=== PATIENT | female | born 1940 | race Caucasian/White ===

== ENCOUNTER 2016-11-29 01:25 | Emergency (ER) | payer MEDICARE, OTHER ==
[2016-11-29] MEDS ORDERED: Lasix 40 MG/4 ML ONE (01:33)
[2016-11-29] MEDS ORDERED: PROVENTIL 2.5 MG/3 ML NEB IH ONE ×2 (01:35→02:01)
[2016-11-29] MEDS ORDERED: Nitrostat 0.4 MG Tablet SL PRN (01:38)
[2016-11-29] MEDS ORDERED: Lasix 40 MG/4 ML IV ONE (01:45)
--- NOTE | 2016-11-29 01:46 | ERPHSYRPT ---
- History of Present Illness Time Seen by Provider: 11/29/16 01:27 Source: patient Exam Limitations: no limitations Patient Subjective Stated Complaint: PER EMS CALLED FOR SHORTNESS OF BREATH. EMS STS PT INITIALLY SPEAKING IN FULL SENTENCES WITHOUT DIFFICULTY. UPON ARRIVAL PT YELLING "I CAN'T BREATHE" "I DON'T WANT TO ". Triage Nursing Assessment: PT ALERT, YELLING OUT SCREAMING AT STAFF AND EMS "I DON'T WANT TO ". PT FOLLOWING ALL COMMANDS. PT SKIN PALE, WARM, DIAPHORETIC. RESPS LABORED. WET COUGH NOTED. Physician History: PT HAS HAD SHORTNESS OF AIR FOR THE PAST 2 DAYS WORSE WITH [facility] PULLED INTO [facility] ER THIS AM. PT DENIES CHEST PAIN, FEVER, ABDOMINAL PAIN; ADMITS TO COUGH. Allergies/Adverse Reactions: hydrocodone [Hydrocodone] Allergy (Intermediate, Verified 11/29/16 02:39) Home Medications: Allopurinol 100 mg [Zyloprim 100 mg] 100 mg PO DAILY 05/11/13 [History] Cholecalciferol (Vitamin D3) [Vitamin D] 50,000 unit PO UD 05/11/13 [ History] Furosemide 20 mg [Lasix 20 mg] 20 mg PO DAILY 05/11/13 [History] Hydrocodone/Acetaminophen [Vicodin 5-300 mg Tablet] 1 - 2 tab PO Q4-6HPRN PRN [History] Krill Oil/[place]-3/Dha/Epa [[place]-3 Krill Oil Softgel] 1 each PO DAILY 05/11/13 [ History] Levothyroxine Sodium 88 Mcg [Synthroid 88 Mcg] 88 mcg PO DAILY 05/11/13 [ History] Omeprazole 20 MG [Prilosec 20 mg] 20 mg PO DAILY 05/11/13 [History] Simvastatin 20Mg [Zocor 20Mg] 20 mg PO HS 05/11/13 [History] Aspirin 325 mg PO QAM 10/21/14 [History] Losartan Potassium 25 mg PO QHS 10/21/14 [History] Metoprolol Succinate [Toprol Xl] 200 mg PO HS 10/21/14 [History] Hx Tetanus, Diphtheria Vaccination/Date Given: Yes Hx Influenza Vaccination/Date Given: Yes (2013) Hx Pneumococcal Vaccination/Date Given: No - Review of Systems Constitutional: No Fever Respiratory: Cough, Dyspnea Cardiac: No Chest Pain Abdominal/Gastrointestinal: Nausea, No Abdominal Pain, No Vomiting Neurological: No Headache Endocrine: No Excessive Sweating All Other Systems: Reviewed and Negative - Past Medical History Pertinent Past Medical History: Yes Cardiac History: High Cholesterol, Hypertension, Myocardial Infarction (ID) Respiratory History: CHF, Sleep Apnea Endocrine Medical History: Hypothyroidism Musculoskeletal History: No Pertinent History GI Medical History: No Pertinent History History: No Pertinent History Psycho-Social History: No Pertinent History Female Reproductive Disorders: No Pertinent History - Past Surgical History Past Surgical History: Yes Neuro Surgical History: No Pertinent History Cardiac: Cardiac Stent, Pacemaker Respiratory: No Pertinent History Gastrointestinal: Appendectomy Genitourinary: No Pertinent History Musculoskeletal: Joint Replacement Female Surgical History: Tubal Ligation - Social History Smoking Status: Unknown if ever smoked How long have you smoked: no Exposure to second hand smoke: No Alcohol Use: None Drug Use: none Patient Lives Alone: No Significant Family History: heart disease, hypertension - Female History Hx Now: No - Nursing Vital Signs Nursing Vital Signs: Initial Vital Signs Temperature 98.5 F Temperature Source Rectal Pulse Rate 83 Respiratory Rate 28 Blood Pressure 198/112 - Physical Exam General Appearance: lethargy (LETHARGIC BUT AROUSABLE AND WILL ANSWER QUESTIONS. ) Eye Exam: PERRL/EOMI Ears, Nose, Throat Exam: normal pharynx Neck Exam: normal inspection Respiratory Exam: crackles/rales, wheezing Cardiovascular/Chest Exam: normal heart sounds Abdominal/Gastrointestinal Exam: soft, normal bowel sounds Extremity Exam: pedal edema (+2 ANKLE EDEMA BILATERALLY) Peripheral Pulses Exam: dorsalis-pedis (R): 2+, dorsalis-pedis (L): 2+ Neurologic Exam: alert, cooperative Skin Exam: diaphoresis, pale SpO2 Interpretation: hypoxic SpO2: 63 Oxygen Delivery: Nasal Cannula - Course Nursing assessment & vital signs reviewed: Yes EKG Interpreted by Me: RATE (77), Other (PACED RHYTHM; INTRAVENTRICULAR BLOCK.) - Radiology Exams Chest X-ray Interpretation: Interpreted by me (PULMONARY EDEMA) Ordered Tests: Active Orders 24 hr Category Date Time Status Metal Bumper STAT Care 11/29/16 01:35 Active Catheter-[place] Mazariegos STAT Care 11/29/16 01:51 Active EKG-ER Only STAT Care 01/17/17 01:35 Active IV Insertion STAT Care 11/29/16 01:35 Active CHEST 1 VIEW (PORTABLE) Stat Exams 11/29/16 01:36 Taken AMYLASE Stat Lab 11/29/16 01:38 Completed ARTERIAL BLOOD GASES Urgent Lab 11/29/16 01:40 Completed ARTERIAL BLOOD GASES Urgent Lab 11/29/16 01:56 Ordered ARTERIAL BLOOD GASES Urgent Lab 11/29/16 02:30 Completed BLOOD CULTURE Stat Lab 11/29/16 01:55 Received CBC W DIFF Stat Lab 11/29/16 01:45 Completed CMP Stat Lab 11/29/16 01:45 Completed CULTURE,SPUTUM Stat Lab 11/29/16 01:36 Uncollected CULTURE,URINE Stat Lab 11/29/16 02:07 Ordered LIPASE Stat Lab 11/29/16 01:38 Completed Lactic Acid Urgent Lab 11/29/16 01:40 Completed Lactic Acid Urgent Lab 11/29/16 02:30 Completed MAGNESIUM Stat Lab 11/29/16 01:45 Completed Manual Differential NC Stat Lab 11/29/16 01:45 Completed NT PRO BNP Stat Lab 11/29/16 01:45 Completed PROTIME WITH INR Stat Lab 11/29/16 01:45 Completed PTT Stat Lab 11/29/16 01:45 Completed TROPONIN Stat Lab 11/29/16 01:45 Completed UA Stat Lab 11/29/16 01:51 Ordered Urine Triage Profile Stat Lab 11/29/16 01:51 Ordered BiPap/CPAP Assessment STAT RT 11/29/16 01:35 Active Respiratory Nebulizer STAT RT 11/29/16 01:37 Completed Medication Summary Generic Name Dose Route Start Last Admin Trade Name Freq PRN Reason Stop Dose Admin Nitroglycerin/Dextrose 250 mls @ 0.9 mls/hr 11/29/16 02:15 11/29/16 02:25 Ntg 0.2mg/Ml In D5w Glass IV 12/29/16 02:14 3 mls/hr .Q24H MARIANO Administration Protocol 3 MCG/MIN Azithromycin 250 mls @ 125 mls/hr 11/29/16 02:08 11/29/16 02:18 Zithromax 500 Mg/ 250 Ml Nacl Premix IV 11/29/16 04:07 125 mls/hr STAT ONE Administration Nitroglycerin 0.4 mg 11/29/16 01:38 11/29/16 02:12 Nitrostat 0.4 Mg Tablet SL 12/29/16 01:37 0.4 mg Q5MIN PRN MR X 3 PRN Administration CHEST PAIN Discontinued Medications Generic Name Dose Route Start Last Admin Trade Name Tyree PRN Reason Stop Dose Admin Albuterol Sulfate 2.5 mg 11/29/16 01:35 11/29/16 02:02 Proventil 2.5 Mg/3 Ml Neb IH 11/29/16 01:36 2.5 mg STAT ONE Administration Albuterol Sulfate Confirm 11/29/16 02:01 Proventil 2.5 Mg/3 Ml Neb Administered 11/29/16 02:02 Dose 2.5 mg IH .STK-MED ONE Furosemide Confirm 11/29/16 01:33 Lasix 40 Mg/4 Ml Administered 11/29/16 01:34 Dose 40 mg .ROUTE .STK-MED ONE Furosemide 40 mg 11/29/16 01:45 11/29/16 01:46 Lasix 40 Mg/4 Ml IV 11/29/16 01:46 40 mg STAT ONE Administration Ceftriaxone Sodium/Dextrose 50 mls @ 100 mls/hr 11/29/16 02:08 11/29/16 02:19 Rocephin 1 Gm-D5w 50 Ml Bag IV 11/29/16 02:37 100 mls/hr STAT ONE Administration Azithromycin Confirm 11/29/16 02:16 Zithromax 500 Mg/ 250 Ml Nacl Premix Administered 11/29/16 02:17 Dose 250 mls @ ud IV .STK-MED ONE Ceftriaxone Sodium/Dextrose Confirm 11/29/16 02:16 Rocephin 1 Gm-D5w 50 Ml Bag Administered 11/29/16 02:17 Dose 50 mls @ ud IV .STK-MED ONE Nitroglycerin/Dextrose Confirm 11/29/16 02:24 Ntg 0.2mg/Ml In D5w Glass Administered 11/29/16 02:25 Dose 250 mls @ ud IV .STK-MED ONE Sodium Chloride Confirm 11/29/16 02:30 Sodium Chloride 0.9% 1000 Ml Administered 11/29/16 02:31 Dose 1,000 mls @ ud .ROUTE .STK-MED ONE Lab/Rad Data: Laboratory Result Diagrams 11/29/16 01:45 01/17/17 01:45 Laboratory Results 11/29/16 11/29/16 11/29/16 Range/Units 02:30 01:45 01:45 WBC (4.0-10.5) K/mm3 RBC (4.1-5.4) M/mm3 Hgb (12.0-16.0) gm/dl Hct (35-47) % MCV (78-100) fl MCH (26-32) pg MCHC (32-36) g/dl RDW (11.5-14.0) % Plt Count (150-450) K/mm3 MPV (6-9.5) fl INR 0.90 (0.8-3.0) PTT 28.2 (25.3-37.0) SECONDS Puncture Site RIGHT BRACHIAL pCO2 58 H (35-45) mmHg pO2 498 H* (75-100) mmHg Base Excess -5.9 L (-2.0-2.0) O2 Saturation 97.8 (94-100) g/dF ABG pH 7.20 L* (7.35-7.45) ABG HCO3 22.7 (22-28) ABG O2 Sat (Measured) 99.2 (95-100) % Cecilio Test NOT APPLICABLE A-a Gradient 143 a/A Ratio 0.78 Hemoglobin 11.8 Carboxyhemoglobin 0.6 (0.0-6.9) % THgb Methemoglobin 0.7 L (1.4-1.5) % Potassium 4.3 5.1 (3.5-5.1) Temperature 37.0 C POC O2 Flow Rate 100 % Vent Mode BiPAP Inspiratory BiPAP 16 Expiratory BiPAP 6 Sodium 142 (136-145) mEq/L Chloride 104 (98-107) mEq/L Carbon Dioxide 22.0 (21-32) mEq/L Anion Gap 20.9 H (5-15) MEQ/L BUN 21 H (9-20) mg/dL Creatinine 1.72 H (0.55-1.30) mg/dl Estimated GFR 31 ML/MIN Glucose 314 H (70-110) MG/DL Lactic Acid 3.1 H (0.4-2.0) Calcium 9.0 (8.5-10.1) mg/dL Magnesium 2.2 (1.8-2.4) mg/dL Total Bilirubin 0.9 (0.2-1.0) mg/dL AST 17 (15-37) U/L ALT 14 (12-78) U/L Alkaline Phosphatase 134 H (46-116) U/L Troponin I 0.137 H* (0.000-0.056) ng/ml NT-Pro-B Natriuret Pep 4057 H (0-125) pg/ml Serum Total Protein 7.4 (6.4-8.2) gm/dL Albumin 3.7 (3.4-5.0) g/dL Amylase (25-115) U/L Lipase (73-393) U/L 11/29/16 11/29/16 11/29/16 Range/Units 01:45 01:40 01:40 WBC 19.0 H (4.0-10.5) K/mm3 RBC 4.18 (4.1-5.4) M/mm3 Hgb 12.7 (12.0-16.0) gm/dl Hct 41.6 (35-47) % MCV 99.5 (78-100) fl MCH 30.4 (26-32) pg MCHC 30.5 L (32-36) g/dl RDW 14.3 H (11.5-14.0) % Plt Count 356 (150-450) K/mm3 MPV 11.5 H (6-9.5) fl INR (0.8-3.0) PTT (25.3-37.0) SECONDS Puncture Site LEFT RADIAL pCO2 93 H* (35-45) mmHg pO2 67 L (75-100) mmHg Base Excess -14.4 L (-2.0-2.0) O2 Saturation 80.7 L (94-100) g/dF ABG pH 6.93 L* (7.35-7.45) ABG HCO3 19.5 L (22-28) ABG O2 Sat (Measured) 82.7 L (95-100) % Cecilio Test NOT APPLICABLE A-a Gradient 530 a/A Ratio 0.11 Hemoglobin 13.0 Carboxyhemoglobin 1.0 (0.0-6.9) % THgb Methemoglobin 1.4 (1.4-1.5) % Potassium 5.3 H (3.5-5.1) Temperature 37.0 C POC O2 Flow Rate 100 % Vent Mode Inspiratory BiPAP Expiratory BiPAP Sodium (136-145) mEq/L Chloride (98-107) mEq/L Carbon Dioxide (21-32) mEq/L Anion Gap (5-15) MEQ/L BUN (9-20) mg/dL Creatinine (0.55-1.30) mg/dl Estimated GFR ML/MIN Glucose (70-110) MG/DL Lactic Acid 7.5 H (0.4-2.0) Calcium (8.5-10.1) mg/dL Magnesium (1.8-2.4) mg/dL Total Bilirubin (0.2-1.0) mg/dL AST (15-37) U/L ALT (12-78) U/L Alkaline Phosphatase (46-116) U/L Troponin I (0.000-0.056) ng/ml NT-Pro-B Natriuret Pep (0-125) pg/ml Serum Total Protein (6.4-8.2) gm/dL Albumin (3.4-5.0) g/dL Amylase (25-115) U/L Lipase (73-393) U/L 11/29/16 Range/Units 01:38 WBC (4.0-10.5) K/mm3 RBC (4.1-5.4) M/mm3 Hgb (12.0-16.0) gm/dl Hct (35-47) % MCV (78-100) fl MCH (26-32) pg MCHC (32-36) g/dl RDW (11.5-14.0) % Plt Count (150-450) K/mm3 MPV (6-9.5) fl INR (0.8-3.0) PTT (25.3-37.0) SECONDS Puncture Site pCO2 (35-45) mmHg pO2 (75-100) mmHg Base Excess (-2.0-2.0) O2 Saturation (94-100) g/dF ABG pH (7.35-7.45) ABG HCO3 (22-28) ABG O2 Sat (Measured) (95-100) % Cecilio Test A-a Gradient a/A Ratio Hemoglobin Carboxyhemoglobin (0.0-6.9) % THgb Methemoglobin (1.4-1.5) % Potassium (3.5-5.1) Temperature C POC O2 Flow Rate % Vent Mode Inspiratory BiPAP Expiratory BiPAP Sodium (136-145) mEq/L Chloride (98-107) mEq/L Carbon Dioxide (21-32) mEq/L Anion Gap (5-15) MEQ/L BUN (9-20) mg/dL Creatinine (0.55-1.30) mg/dl Estimated GFR ML/MIN Glucose (70-110) MG/DL Lactic Acid (0.4-2.0) Calcium (8.5-10.1) mg/dL Magnesium (1.8-2.4) mg/dL Total Bilirubin (0.2-1.0) mg/dL AST (15-37) U/L ALT (12-78) U/L Alkaline Phosphatase (46-116) U/L Troponin I (0.000-0.056) ng/ml NT-Pro-B Natriuret Pep (0-125) pg/ml Serum Total Protein (6.4-8.2) gm/dL Albumin (3.4-5.0) g/dL Amylase 62 (25-115) U/L Lipase 225 (73-393) U/L - Progress Progress Note: 11/29/16 02:30 PT LOOKS PINK, ALERT, AUSCULTATION REVEALS LESS RALES. Discussed with Dr.: Other (SPOKE WITH DR SANDERS(COVERING FINANCE OFFICER FOR DR CACERES)([id number]) WHO ACCEPTED PT FOR TRANSFER TO [facility] A DIRECT ADMISSION.) - Departure Time of Disposition: 02:49 Departure Disposition: Transfer ([facility]) Clinical Impression: ACUTE PULMONARY EDEMA, ELEVATED TROPONIN I, HYPOTHYROIDISM, HTN Condition: Stable Critical Care Time: Yes Critical Care Time(excluding separately billable procedures): 30-74 minutes Referrals: YAN CACERES [Primary Care Provider] -
[2016-11-29 01:57] LABS: A-aADO2 530; ARTERIAL BLD GAS O2 SATURATION 82.7 % (95-100); ARTERIAL BLOOD GAS BASE EXCESS -14.4 (-2.0-2.0); ARTERIAL BLOOD GAS FIO2 100 %; ARTERIAL BLOOD GAS PO2 67 mmHg (75-100)
[2016-11-29 01:58] LABS: ARTERIAL BLOOD GAS pH 6.93 (7.35-7.45)
[2016-11-29 02:00] LABS: Mean Cell Volume 99.5 fl (78-100); Mean Corpuscular Hemoglobin 30.4 pg (26-32); Mean Platelet Volume 11.5 fl (6-9.5); Platelet Count 356 K/mm3 (150-450); Red Blood Count 4.18 M/mm3 (4.1-5.4); Red Cell Distribution Width 14.3 % (11.5-14.0)
[2016-11-29] MEDS ORDERED: Zithromax 500 MG/ 250 ML NaCl Premix 250 ML IV ONE ×2 (02:08→02:16)
[2016-11-29] MEDS ORDERED: ROCEPHIN 1 Gm-D5w 50 ml Bag** 50 ML IV ONE ×2 (02:08→02:16)
[2016-11-29] MEDS ORDERED: Ntg 0.2MG/Ml in D5W GLASS*** 250 ML IV SCH (02:15)
[2016-11-29 02:17] LABS: INR 0.9 (0.8-3.0); PROTIME 10.1 SECONDS (9.95-12.35)
[2016-11-29 02:20] LABS: PTT 28.2 SECONDS (25.3-37.0)
[2016-11-29] MEDS ORDERED: Ntg 0.2MG/Ml in D5W GLASS*** 250 ML IV ONE (02:24)
[2016-11-29 02:28] LABS: ALBUMIN 3.7 g/dL (3.4-5.0); ANION GAP 20.9 MEQ/L (5-15); BILIRUBIN,TOTAL 0.9 mg/dL (0.2-1.0); MAGNESIUM 2.2 mg/dL (1.8-2.4); Potassium 5.1 mEq/L (3.5-5.1); Total Protein 7.4 gm/dL (6.4-8.2)
[2016-11-29] MEDS ORDERED: Sodium Chloride 0.9% 1000 ML 1,000 ML ONE (02:30)
[2016-11-29 02:32] LABS: LIPASE 225 U/L (73-393)
[2016-11-29 02:32] LABS: TROPONIN 0.137 ng/ml (0.000-0.056)
[2016-11-29 02:38] LABS: A-aADO2 143; ARTERIAL BLD GAS O2 SATURATION 99.2 % (95-100); ARTERIAL BLOOD GAS BASE EXCESS -5.9 (-2.0-2.0); ARTERIAL BLOOD GAS FIO2 100 %; ARTERIAL BLOOD GAS PO2 498 mmHg (75-100); BIPAP(E) 6; BIPAP(I) 16; Lactic Acid 3.1 (0.4-2.0)
[2016-11-29 03:30] LABS: Eosinophil 2 % (0.00-3.0); Platelet Estimate NORMAL (NORMAL); Total Cells Counted 100
[2016-11-29 04:09] LABS: Bacteria RARE /HPF (NEGATIVE); COMPLETE URINE MICROSCOPIC? YES; Collection Type CATH; Epithelial Cells FEW /HPF (FEW); Ph 6.5 (5-6); WBC 0-2 /HPF (0-5)
[2016-11-29 07:32] LABS: A-aADO2 34; ARTERIAL BLD GAS O2 SATURATION 97.9 % (95-100); ARTERIAL BLOOD GAS FIO2 28 %; ARTERIAL BLOOD GAS PO2 112 mmHg (75-100); ARTERIAL BLOOD GAS pH 7.42 (7.35-7.45); Lactic Acid 1.3 (0.4-2.0)
[2016-11-29 07:33] LABS: ALLEN TEST OK? yes
[2016-11-29 08:38] LABS: Carbon Dioxide 26.6 mEq/L (21-32); Potassium 4.6 mEq/L (3.5-5.1)
[2016-11-29 09:02] LABS: TROPONIN 0.175 ng/ml (0.000-0.056)
[2016-11-29] MEDS ORDERED: ENOXAPARIN SODIUM SQ SCH (09:30)
--- NOTE | 2016-11-29 09:39 | XRAY ---
Indication: Short of breath. Comparison: October 20, 2014 Portable chest degraded by respiration artifact and now demonstrates right mid to lower lung infiltrate versus atelectasis without consolidation/large effusion. Left lung clear. Heart is not enlarged for AP portable technique with stable left-sided dual-lead pacemaker. Bony thorax intact again with mild osteopenia and degenerative changes. Impression: New right lung infiltrate/atelectasis. Correlate clinically.
[2016-11-29 10:17] VITALS: BP 137/73; PULSE 61; O2SAT 97
[2016-11-29] MEDS ORDERED: Nitrostat 0.4 MG (ED) SL ONE (15:28)
== END 2016-11-29 10:20 | disposition short-term general hospital (02) ==
LOC: ED 01:25
DX: R60.9 Edema, unspecified (principal); E03.9 Hypothyroidism, unspecified; R79.89 Other specified abnormal findings of blood chemistry; I10 Essential (primary) hypertension; R06.02 Shortness of breath; R05 Cough; Z79.899 Other long term (current) drug therapy; I25.2 Old myocardial infarction; I50.9 Heart failure, unspecified
CPT/HCPCS: 36000; 36415; 36600; 51702; 71010; 80048; 80053; 80307; 81000; 82150; 82375; 82803; 83605; 83690; 83735; 83880; 84484; 85025; 85610; 85730; 87040; 87086; 93005; 93041; 94002; 94640; 96360; 96361; 96365; 96366; 96367; 99285; J0456; J0696; J1940

== ENCOUNTER 2017-08-31 08:41 | Emergency (ER) | payer MEDICARE, OTHER ==
--- NOTE | 2017-08-31 08:59 | ERPHSYRPT ---
- History of Present Illness Time Seen by Provider: 08/31/17 08:43 Source: patient, family (), old records Exam Limitations: no limitations Patient Subjective Stated Complaint: pt here for palpatations for 3 days off and on, she states she started a excerise program this week, she states she can hear her heart beating, no pain, dizziness and lightheaded Triage Nursing Assessment: pt alert, resp easy, skin w/d,pale, abd soft, edema to ankles.pt states swelling is normal for her,chest clear, Physician History: patient presents with a history of palpitations 3 days which started after beginning a wellness program of exercise; intermittent in nature; worse at night ; can hear her heart beat in her ears; no chest pain, no shortness of breath, some heaviness, no nausea, vomiting or diaphoresis, no visual disturbance,; dizziness which is lightheadedness without vertigo; no recent change in medications for 3 months; no recent trauma or exposure; no fever or chills; no headache; no tinnitus; patient has a hx of anemia; last blood transfusion was 50 years ago when had twins; has black stools when takes Iron; o Iron now but stools turned black one week ago; no gross blood ; Timing/Duration: day(s) (3), intermittent Activities at Onset: rest (after exercise) Quality: other (heaviness) Location: substernal Chest Pain Radiation: no radiation Severity of Pain-Max: mild Severity of Pain-Current: none Modifying Factors: Improves With: lying down (after exercise) Nitro Today/Relief: no nitro taken today Aspirin Treatment Today: 81 mg x 1 Associated Symptoms: other (lightheadedness and heaviness associated with palpitations) Prior Chest Pain/Cardiac Workup: cardiac cath, recently seen/treated Allergies/Adverse Reactions: hydrocodone [Hydrocodone] Allergy (Intermediate, Verified 08/31/17 08:53) Home Medications: Levothyroxine Sodium 88 Mcg [Synthroid 88 Mcg] 88 mcg PO DAILY 05/11/13 [ History] Omeprazole 20 MG [Prilosec 20 mg] 20 mg PO DAILY 05/11/13 [History] Aspirin 1 tab PO DAILY 11/29/16 [History] Atorvastatin Calcium 80 mg PO DAILY 11/29/16 [History] Cyanocobalamin (Vitamin B-12) [B-12] 1,000 mcg PO DAILY 11/29/16 [History] Metformin HCl 500 mg PO BID 11/29/16 [History] Paroxetine HCl 10 mg PO DAILY 11/29/16 [History] Albuterol Sulfate [Ventolin Hfa] 18 gm DAILY 08/31/17 [History] Carvedilol [Coreg] 25 mg BID 08/31/17 [History] Cyanocobalamin (Vitamin B-12) [B-12] 1,000 mcg DAILY 08/31/17 [History] Dabigatran Etexilate Mesylate [Pradaxa] 150 mg BID 08/31/17 [History] Krill/Om-3/Dha/Epa/Phospho/Ast [Krill Oil 500 mg Softgel] 1 ea DAILY 08/31/17 [ History] Magnesium 250 mg DAILY 08/31/17 [History] Sacubitril/Valsartan [Entresto 49 mg-51 mg Tablet] 1 ea BID 08/31/17 [History] Spironolactone 25 mg [Aldactone 25 MG] 25 mg DAILY 08/31/17 [History] Ubidecarenone/Vit E Acet [Co Q-10 100 mg Softgel] 1 ea DAILY 08/31/17 [History] Hx Tetanus, Diphtheria Vaccination/Date Given: Yes Hx Influenza Vaccination/Date Given: No Hx Pneumococcal Vaccination/Date Given: Yes Immunizations Up to Date: No - Review of Systems Constitutional: Other (lightheaded) Eyes: No Symptoms Ears, Nose, & Throat: No Symptoms Respiratory: No Cough, No Dyspnea, No Wheezing Cardiac: Edema (chronic), Palpitations (intermittent), No Chest Pain, No Syncope , No Orthopnea Abdominal/Gastrointestinal: No Abdominal Pain, No Nausea, No Vomiting, No Diarrhea, No Constipation Genitourinary Symptoms: No Symptoms Musculoskeletal: Arthralgias, No Fall, No Injury Skin: No Symptoms Neurological: Dizziness (lightheaded), No Focal Weakness, No Headache, No Seizure, No Vertigo Psychological: Anxiety, No Alcohol Abuse, No Drug Abuse, No Suicidal Ideations Endocrine: No Symptoms Hematologic/Lymphatic: Anemia, Easy Bruising, Other (black stools x 1 week), No Blood Clots, No Easy Bleeding Immunological/Allergic: No Symptoms - Past Medical History Pertinent Past Medical History: Yes Cardiac History: High Cholesterol, Hypertension, Myocardial Infarction ([place]) Respiratory History: CHF, Sleep Apnea Endocrine Medical History: Diabetes Type II, Hypothyroidism Musculoskeletal History: No Pertinent History GI Medical History: No Pertinent History History: No Pertinent History Psycho-Social History: No Pertinent History Female Reproductive Disorders: No Pertinent History - Past Surgical History Past Surgical History: Yes Neuro Surgical History: No Pertinent History Cardiac: Cardiac Stent, Pacemaker Respiratory: No Pertinent History Gastrointestinal: Appendectomy Genitourinary: No Pertinent History Musculoskeletal: Joint Replacement Female Surgical History: Tubal Ligation Other Surgical History: knee replacement - Social History Smoking Status: Never smoker How long have you smoked: no Exposure to second hand smoke: No Alcohol Use: None Drug Use: none Patient Lives Alone: No Significant Family History: heart disease, hypertension - Female History Hx Last Menstrual Period: post Hx Now: No - Nursing Vital Signs Nursing Vital Signs: Initial Vital Signs Temperature 97.8 F 08/31/17 08:41 Pulse Rate 84 08/31/17 08:41 Respiratory Rate 16 08/31/17 08:41 Blood Pressure 101/38 08/31/17 08:41 O2 Sat by Pulse Oximetry 98 08/31/17 08:41 Pain Scale Pain Intensity 0 - Physical Exam General Appearance: mild distress, alert, anxiety, obese Eye Exam: PERRL/EOMI, eyes nml inspection, other (fundi benign; no papilledema) Ears, Nose, Throat Exam: normal ENT inspection, TMs normal, pharynx normal, moist mucous membranes Neck Exam: normal inspection, non-tender, supple, full range of motion, JVD ( minimal), No meningismus, No carotid bruit Respiratory Exam: normal breath sounds, lungs clear, airway intact, No chest tenderness, No respiratory distress, No crackles/rales, No rhonchi, No wheezing Cardiovascular Exam: regular rate/rhythm, normal heart sounds, normal peripheral pulses, capillary refill 2-3 sec, No murmur Gastrointestinal/Abdomen Exam: soft, normal bowel sounds, No tenderness, No distention, No guarding, No rebound, No organomegaly Pelvic Exam: deferred Rectal Exam: normal exam, normal rectal tone, black stool, blood (heme pos), No mass, No hemorrhoids Back Exam: normal inspection, normal range of motion, No CVA tenderness, No vertebral tenderness, No rash Extremity Exam: normal inspection, normal range of motion, pedal edema (1+), No alina's sign Neurologic Exam: alert, oriented x 3, cooperative, 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 tested, normal mood/affect, nml cerebellar function, nml station & gait (with a cane), sensation nml Skin Exam: warm, dry, pale, No normal color (pale), No rash, No petechiae, No cyanosis SpO2 Interpretation: normal SpO2: 98 Oxygen Delivery: Room Air - Course Nursing assessment & vital signs reviewed: Yes EKG Interpreted by Me: RATE (76), Sinus Rhythm (Pacemaker rhythm), Other (paced rhythm unchanged when compared to EKG from November 29, 2016) Rhythm Strip: Rate (76 pacemaker), Normal Sinus Rhythm (pacemaker) - Radiology Exams Chest X-ray Interpretation: Reviewed by me, Teleradiologist Report, Negative, No Pneumonia, No Pneumothorax, Nml Heart Size, No Infiltrates, Nml Mediastinum, Other (pacemaker; apical calc granuloma) Ordered Tests: Active Orders 24 hr Category Date Time Status Accucheck STAT Care 08/31/17 10:25 Active Singe Machine Operator STAT Care 08/31/17 08:52 Active EKG-ER Only STAT Care 08/31/17 08:51 Active Orthostatic Vital Signs STAT Care 08/31/17 09:22 Active Oxygen-ED Only NASAL CANNULA 2 lpm Care 08/31/17 10:25 Active Pulse Oximetry (ED) STAT Care 08/31/17 08:51 Active Re-Check Vital Signs STAT Care 08/31/17 08:51 Active CHEST 1 VIEW (PORTABLE) Stat Exams 08/31/17 08:52 Completed CBC W DIFF Stat Lab 08/31/17 09:03 Completed CMP Stat Lab 08/31/17 09:03 Completed D-DIMER QUANTITATION Stat Lab 08/31/17 09:03 Completed MAGNESIUM Stat Lab 08/31/17 09:03 Completed Manual Differential NC Stat Lab 08/31/17 09:03 Completed NT PRO BNP Stat Lab 08/31/17 09:03 Completed Occult Blood,Stool Other Stat Lab 08/31/17 09:20 Completed PROTIME WITH INR Stat Lab 08/31/17 09:03 Completed Pathologist Review Stat Lab 08/31/17 09:03 Completed TROPONIN Q3H Lab 08/31/17 09:03 Completed Medication Summary Generic Name Dose Route Start Last Admin Trade Name Freq PRN Reason Stop Dose Admin Sodium Chloride 1,000 mls @ 50 mls/hr 08/31/17 09:00 08/31/17 09:13 Sodium Chloride 0.9% 1000 Ml IV 09/30/17 08:59 50 mls/hr .Q20H MARIANO Administration Lab/Rad Data: Laboratory Result Diagrams 08/31/17 09:03 08/31/17 09:03 Laboratory Results 08/31/17 08/31/17 08/31/17 Range/Units 09:20 09:20 09:03 WBC (4.0-10.5) K/mm3 RBC (4.1-5.4) M/mm3 Hgb (12.0-16.0) gm/dl Hct (35-47) % MCV (78-100) fl MCH (26-32) pg MCHC (32-36) g/dl RDW (11.5-14.0) % Plt Count (150-450) K/mm3 MPV (6-9.5) fl Gran % (36.0-66.0) % Lymphocytes % (24.0-44.0) % Monocytes % (0.0-12.0) % Eosinophils % (0.00-5.0) % Basophils % (0.0-0.4) % Segmented Neutrophils (36.0-66.0) % Lymphocytes (Manual) (24-44) % Monocytes (Manual) (0.0-12.0) % Eosinophils (Manual) (0.00-3.0) % Basophils # (0-0.4) Differential Comment Platelet Estimate (NORMAL) Polychromasia Poikilocytosis Anisocytosis Rouleaux Smear Path Review INR (0.8-3.0) D-Dimer (0-500) ng/mL Sodium (136-145) mEq/L Potassium (3.5-5.1) mEq/L Chloride (98-107) mEq/L Carbon Dioxide (21-32) mEq/L Anion Gap (5-15) MEQ/L BUN (9-20) mg/dL Creatinine (0.55-1.30) mg/dl Estimated GFR ML/MIN Glucose (70-110) MG/DL Calcium (8.5-10.1) mg/dL Magnesium (1.8-2.4) mg/dL Total Bilirubin (0.2-1.0) mg/dL AST (15-37) U/L ALT (12-78) U/L Alkaline Phosphatase (46-116) U/L Troponin I 0.055 (0.000-0.056) ng/ml NT-Pro-B Natriuret Pep (0-125) pg/ml Serum Total Protein (6.4-8.2) gm/dL Albumin (3.4-5.0) g/dL Stool Occult Blood POSITIVE (Negative) ABO Group O Rh Factor NEGATIVE Antibody Screen NEGATIVE (NEGATIVE) 08/31/17 08/31/17 08/31/17 Range/Units 09:03 09:03 09:03 WBC 6.4 (4.0-10.5) K/mm3 RBC 1.73 L* (4.1-5.4) M/mm3 Hgb 5.1 L* (12.0-16.0) gm/dl Hct 16.4 L (35-47) % MCV 94.8 (78-100) fl MCH 29.4 (26-32) pg MCHC 31.1 L (32-36) g/dl RDW 14.8 H (11.5-14.0) % Plt Count 242 (150-450) K/mm3 MPV 10.2 H (6-9.5) fl Gran % 62.1 (36.0-66.0) % Lymphocytes % 27.6 (24.0-44.0) % Monocytes % 7.6 (0.0-12.0) % Eosinophils % 1.9 (0.00-5.0) % Basophils % 0.8 (0.0-0.4) % Segmented Neutrophils 64 (36.0-66.0) % Lymphocytes (Manual) 28 (24-44) % Monocytes (Manual) 6 (0.0-12.0) % Eosinophils (Manual) 2 (0.00-3.0) % Basophils # 0.05 (0-0.4) Differential Comment ABNORMAL Platelet Estimate NORMAL (NORMAL) Polychromasia 1+ Poikilocytosis 1+ Anisocytosis 1+ Rouleaux 1+ Smear Path Review INR 4.58 H (0.8-3.0) D-Dimer 261 (0-500) ng/mL Sodium 139 (136-145) mEq/L Potassium 5.2 H (3.5-5.1) mEq/L Chloride 108 H (98-107) mEq/L Carbon Dioxide 19.1 L (21-32) mEq/L Anion Gap 16.9 H (5-15) MEQ/L BUN 66 H (9-20) mg/dL Creatinine 1.54 H (0.55-1.30) mg/dl Estimated GFR 35 ML/MIN Glucose 149 H (70-110) MG/DL Calcium 8.7 (8.5-10.1) mg/dL Magnesium 1.9 (1.8-2.4) mg/dL Total Bilirubin 0.50 (0.2-1.0) mg/dL AST 12 L (15-37) U/L ALT 10 L (12-78) U/L Alkaline Phosphatase 51 (46-116) U/L Troponin I (0.000-0.056) ng/ml NT-Pro-B Natriuret Pep 250 H (0-125) pg/ml Serum Total Protein 5.8 L (6.4-8.2) gm/dL Albumin 3.2 L (3.4-5.0) g/dL Stool Occult Blood (Negative) ABO Group Rh Factor Antibody Screen (NEGATIVE) reviewed - Progress Progress: re-examined Air Movement: good Progress Note: 08/31/17 09:01 at the bedside; old EKG reviewed; orthostatics and Accu-Chek pend EKG paced and unchanged; chest x-ray and labs pending; we'll monitor and recheck 08/31/17 09:10 Patient tolerated OSVS well; no change in VS ; no symptoms; accucheck 167; lab and xr pending; will continue to monitor and recheck 08/31/17 09:15 will get hemeoccult and T&S 08/31/17 09:24 rectal exam normal except stool black and suspect will be heme positive; lab pending; CXR pacemaker; apical calc granuloma; nad 08/31/17 09:33 Hb?Hct = 5.1/16.4; wbc = 6.4 rbc = 1.73 plt 242; PT = 51.7; INR = 4.58 and D Dimer = 261; will T&S and discuss transfusion and disposition 08/31/17 09:39 Discussed findings with the patient and family; discussed risks and benefits of transfusions and she concurred with a transfusion; she preferred to be admitted to [facility] if need; will consult the [facility] Hospitalists for transfer, admission and transfusion. 08/31/17 09:50 Troponin - 0.055 Dr Bose, Hospitalist at [facility] consulted and accepted the patient for transfer at 0950; patient and family notified 08/31/17 10:20 [facility] gave us a bed at 1015 - room 4127; EMS notified for transfer; patient notified; papers completed 08/31/17 10:26 patient and family informed of transfer and bed; Blood not T&C and given here as would not be ready in time and patient stable and not in dire distress; patient had been placed on O2 because of acute blood loss anemia; awaiting EMS arrival for transfer 08/31/17 10:50 EMS here to transport to [facility]; no change in status Blood Culture(s) Obtained: No Antibiotics given: No Discussed with .: Other (Juice, Hospitalist at [facility] accepted for transfer) Will see patient in: other Counseled pt/family regarding: lab results, diagnosis, need for follow-up, rad results - Departure Time of Disposition: 10:50 Departure Disposition: Transfer (to [facility] , DR Bose, Hospitalist accepting physician) Clinical Impression: Acute GI bleeding, Acute blood loss anemia, Renal failure, Elevated INR, Palpitations, Shortness of breath Condition: Serious Critical Care Time: Yes Critical Care Time(excluding separately billable procedures): 30-74 minutes Referrals: JOE GONZALEZ [CONSULTING PHYSICIAN] -
[2017-08-31] MEDS ORDERED: Sodium Chloride 0.9% 1000 ML 1,000 ML IV SCH (09:00)
[2017-08-31 09:05] LABS: BASOPHIL % 0.8 % (0.0-0.4); Eosinophil % 1.9 % (0.00-5.0); Granulocytes % 62.1 % (36.0-66.0); Lymphocytes % 27.6 % (24.0-44.0); Mean Cell Volume 94.8 fl (78-100); Mean Platelet Volume 10.2 fl (6-9.5); Monocytes % 7.6 % (0.0-12.0); Platelet Count 242 K/mm3 (150-450); Red Cell Distribution Width 14.8 % (11.5-14.0); White Blood Count 6.4 K/mm3 (4.0-10.5)
[2017-08-31] MEDS ORDERED: Sodium Chloride 0.9% 1000 ML 1,000 ML ONE (09:12)
--- NOTE | 2017-08-31 09:21 | XRAY ---
Indication: Short of breath. Comparison: November 29, 2016. Portable chest clear with incidental right apical calcified granuloma. Heart and mediastinal structures within normal limits. Stable left-sided dual-lead pacemaker. Bony thorax intact again with osteopenia and degenerative changes. Impression: Nonacute chest.
[2017-08-31 09:23] LABS: INR 4.58 (0.8-3.0); PROTIME 51.7 SECONDS (9.95-12.35)
[2017-08-31 09:29] LABS: Mean Corpuscular Hemoglobin 29.4 pg (26-32); Red Blood Count 1.73 M/mm3 (4.1-5.4)
[2017-08-31 09:40] LABS: ALBUMIN 3.2 g/dL (3.4-5.0); ANION GAP 16.9 MEQ/L (5-15); BILIRUBIN,TOTAL 0.5 mg/dL (0.2-1.0); Carbon Dioxide 19.1 mEq/L (21-32); MAGNESIUM 1.9 mg/dL (1.8-2.4); Potassium 5.2 mEq/L (3.5-5.1); Total Protein 5.8 gm/dL (6.4-8.2)
[2017-08-31 10:08] LABS: Eosinophil 2 % (0.00-3.0); Total Cells Counted 100
[2017-08-31 10:10] LABS: ANISOCYTOSIS 1+; Platelet Estimate NORMAL (NORMAL); Poikilocytosis 1+; Polychromasia 1+
[2017-08-31 10:42] VITALS: BP 94/55; PULSE 76
[2017-08-31 10:51] VITALS: O2SAT 98
== END 2017-08-31 10:56 | disposition short-term general hospital (02) ==
LOC: ED 08:41
DX: K92.2 Gastrointestinal hemorrhage, unspecified (principal); D62 Acute posthemorrhagic anemia; N19 Unspecified kidney failure; R79.1 Abnormal coagulation profile; R00.2 Palpitations; R06.02 Shortness of breath; Z79.899 Other long term (current) drug therapy
CPT/HCPCS: 36000; 36415; 71010; 80053; 82272; 82962; 83735; 83880; 84484; 85025; 85379; 85610; 86850; 86900; 86901; 93005; 93041; 96360; 96361; 99284; 99285

== ENCOUNTER 2019-09-28 01:34 | Emergency (ER) | payer MEDICARE, OTHER ==
--- NOTE | 2019-09-28 02:02 | ERPHSYRPT ---
- History of Present Illness Time Seen by Provider: 09/28/19 01:48 Source: patient, family Exam Limitations: no limitations Patient Subjective Stated Complaint: pt states she has a headache on the lt side of her head. states it goes down her neck and into her lt upper back. started 3 days ago and much worse tonight Triage Nursing Assessment: pt alert and oriented, answers questions approp. pt ambulatory with steady gait noted. respirations onlabored with lungs cta. pupils equal and reactive. Physician History: 78 y/o diabetic white female with hypothyroidism presents with worsening headache over 3 days. pain described as aching and throbbing. it travels caudally left post neck and left post shoulder. denies head trauma. last migraine headache was decades ago. denies new medication Timing/Duration: day(s) (3) Quality: aching, throbbing Head Pain Location: parietal (left) Severity of Pain-Max: moderate Severity of Pain-Current: moderate Recent Head Trauma: no recent headache/trauma Modifying Factors: Worsens With: exposure to light, noise Associated Symptoms: neck pain (left side), No confusion, No fever/chills, No nausea/vomiting, No sensitive to light Previous symptoms: no prior history Allergies/Adverse Reactions: hydrocodone [Hydrocodone] Allergy (Intermediate, Verified 09/28/19 02:42) tuberculin,PPD,multi-puncture Allergy (Intermediate, Verified 09/28/19 02:42) Swelling Home Medications: Levothyroxine Sodium 88 Mcg [Synthroid 88 Mcg] 88 mcg PO DAILY 05/11/13 [ History] Omeprazole 20 MG [Prilosec 20 mg] 20 mg PO DAILY 05/11/13 [History] Atorvastatin Calcium 80 mg PO DAILY 11/29/16 [History] Metformin HCl 500 mg PO BID 11/29/16 [History] Paroxetine HCl 10 mg PO DAILY 11/29/16 [History] Albuterol Sulfate [Ventolin Hfa] 18 gm DAILY 08/31/17 [History] Carvedilol [Coreg] 25 mg BID 08/31/17 [History] Cyanocobalamin (Vitamin B-12) [B-12] 1,000 mcg DAILY 08/31/17 [History] Krill/Om-3/Dha/Epa/Phospho/Ast [Krill Oil 500 mg Softgel] 1 ea DAILY 08/31/17 [ History] Magnesium 250 mg DAILY 08/31/17 [History] Sacubitril/Valsartan [Entresto 49 mg-51 mg Tablet] 1 ea BID 08/31/17 [History] Spironolactone 25 mg [Aldactone 25 MG] 25 mg DAILY 08/31/17 [History] Ubidecarenone/Vit E Acet [Co Q-10 100 mg Softgel] 1 ea DAILY 08/31/17 [History] Apixaban [Eliquis] 5 mg PO BID 10/09/17 [History] Hx Tetanus, Diphtheria Vaccination/Date Given: Yes Hx Influenza Vaccination/Date Given: No Hx Pneumococcal Vaccination/Date Given: Yes Immunizations Up to Date: Yes - Review of Systems Constitutional: No Symptoms Eyes: No Symptoms Ears, Nose, & Throat: No Symptoms Respiratory: No Symptoms Cardiac: No Symptoms Abdominal/Gastrointestinal: No Symptoms Genitourinary Symptoms: No Symptoms Musculoskeletal: Neck Pain Skin: No Symptoms Neurological: Headache Psychological: No Symptoms Endocrine: No Symptoms Hematologic/Lymphatic: No Symptoms Immunological/Allergic: No Symptoms All Other Systems: Reviewed and Negative - Past Medical History Pertinent Past Medical History: Yes Neurological History: Migraines ENT History: No Pertinent History Cardiac History: Arrhythmia, Coronary Artery Disease, High Cholesterol, Hypertension, Myocardial Infarction ([place]) Respiratory History: CHF, Sleep Apnea Endocrine Medical History: Diabetes Type II, Hypothyroidism Musculoskeletal History: Arthritis GI Medical History: No Pertinent History, GERD History: Renal Disease Psycho-Social History: Panic Disorder Female Reproductive Disorders: No Pertinent History - Past Surgical History Past Surgical History: Yes Neuro Surgical History: No Pertinent History Cardiac: Cardiac Catheterization, Cardiac Stent, Pacemaker Respiratory: No Pertinent History Gastrointestinal: Appendectomy Genitourinary: No Pertinent History Musculoskeletal: Joint Replacement Female Surgical History: Tubal Ligation, Other Other Surgical History: bilateral knee replacement, uterine suspension - Social History Smoking Status: Never smoker How long have you smoked: no Exposure to second hand smoke: No Alcohol Use: None Drug Use: none Patient Lives Alone: No Significant Family History: heart disease, hypertension - Nursing Vital Signs Nursing Vital Signs: Initial Vital Signs Temperature 97.4 F 09/28/19 01:40 Pulse Rate 66 09/28/19 01:40 Respiratory Rate 16 09/28/19 01:40 Blood Pressure 152/53 09/28/19 01:40 O2 Sat by Pulse Oximetry 98 09/28/19 01:40 Pain Scale Pain Intensity 5 - Physical Exam General Appearance: mild distress, alert, anxiety Eye Exam: PERRL/EOMI, eyes nml inspection Ears, Nose, Throat Exam: normal ENT inspection, TMs normal, moist mucous membranes Neck Exam: normal inspection, non-tender, supple, full range of motion Respiratory Exam: normal breath sounds, lungs clear, airway intact, No chest tenderness, No respiratory distress Cardiovascular Exam: regular rate/rhythm, normal heart sounds, normal peripheral pulses Gastrointestinal/Abdominal Exam: soft, normal bowel sounds, No tenderness Back Exam: normal inspection, normal range of motion, No CVA tenderness, No vertebral tenderness Extremity Exam: normal inspection, normal range of motion Mental Status Exam: alert, oriented x 3, cooperative spider assembler Exam: normal hearing, normal speech, PERRL, tongue midline Coordination/Gait Exam: normal finger to nose, normal gait, normal cerebellar function Motor/Sensory Exam: no motor deficit, no sensory deficit Skin Exam: normal color, warm, dry Lymphatic Exam: No adenopathy SpO2 Interpretation: normal SpO2: 98 O2 Delivery: Room Air - Course Nursing assessment & vital signs reviewed: Yes Ordered Tests: Active Orders 24 hr Category Date Time Status HEAD WITHOUT CONTRAST [CT] Stat Exams 09/28/19 01:54 Ordered - Progress Progress: re-examined Air Movement: good Progress Note: 09/28/19 03:06 ct head-no acute intracranial abnormality. pt states she CAN take hydrocodone without issues but only the 5mg/325mg apap. Counseled pt/family regarding: diagnosis, need for follow-up, rad results - Departure Departure Disposition: Home Clinical Impression: Migraine headache Condition: Stable Critical Care Time: No Referrals: JUAN FONSECA MD [Primary Care Provider] - Additional Instructions: follow up with primary doctor for further management Prescriptions: Carisoprodol 350 mg [Soma 350 mg] 350 mg PO Q8H PRN PRN #10 tablet PRN Reason: Muscle Spasms
[2019-09-28 03:04] VITALS: BP 126/44; PULSE 60
[2019-09-28 03:11] VITALS: O2SAT 98
[2019-09-28] MEDS ORDERED: NORCO 5/325 MG PO ONE (03:13)
[2019-09-28] MEDS ORDERED: SOMA 350 MG PO ONE (03:14)
[2019-09-28] MEDS ORDERED: NORCO 5/325 MG ONE (03:21)
--- NOTE | 2019-09-28 07:11 | XRAY ---
Indication: Severe headache 3 days. Multiple contiguous axial images obtained through the head without contrast. Comparison: None Age-appropriate global atrophy and minimal periventricular degenerative micro-ischemia bilaterally. No acute intracranial hemorrhage, abnormal extra-axial fluid collection, or mass effect. Fourth ventricle is midline without hydrocephalus. Bony calvarium intact. Visualized paranasal sinuses and mastoid air cells are clear. Impression: Nonacute senile brain. Comment: Preliminary interpretation was made by [facility]. No discrepancy. CTDI 62.11
== END 2019-09-28 03:45 | disposition home or self-care (01) ==
LOC: ED 01:34
DX: G43.909 Migraine, unspecified, not intractable, without status migrainosus (principal); E03.9 Hypothyroidism, unspecified; Z79.899 Other long term (current) drug therapy; I25.10 Atherosclerotic heart disease of native coronary artery without angina pectoris; I10 Essential (primary) hypertension; E78.00 Pure hypercholesterolemia, unspecified; I25.2 Old myocardial infarction; E11.9 Type 2 diabetes mellitus without complications; Z79.4 Long term (current) use of insulin; I50.9 Heart failure, unspecified; K21.9 Gastro-esophageal reflux disease without esophagitis; M19.90 Unspecified osteoarthritis, unspecified site; N28.9 Disorder of kidney and ureter, unspecified; F41.9 Anxiety disorder, unspecified
CPT/HCPCS: 70450; 99284; A9270-GY

== ENCOUNTER 2025-02-20 13:09 | Emergency (ER) | payer MEDICARE, OTHER ==
[2025-02-20 13:36] VITALS: TEMP 97.9
[2025-02-20 14:24] LABS: Absolute Neutrophil Ct (ANC) 6.88 x10^3/uL (1.56-6.13); BASOPHIL % 0.4 % (0.1-1.2); Basophil (Absolute #) 0.03 x10^3/uL (0.01-0.08); Eosinophil % 0.5 % (0.7-5.8); Eosinophil (Absolute #) 0.04 x10^3/uL (0.04-0.36); Hematocrit 28.4 % (34.1-44.9); Hemoglobin 8.9 g/dL (11.2-15.7); IMMATURE GRAN # 0.03 x10^3u/L (0.001-0.031); IMMATURE GRAN % 0.4 % (0.001-0.429); Lymphocyte (Absolute #) 1.06 x10^3/uL (1.18-3.74); Lymphocytes % 12.4 % (19.3-51.7); Mean Cell Volume 95.3 fL (79.4-94.8); Mean Corpuscular Hemoglobin 29.9 pg (25.6-32.2); Mean Corpuscular Hgb Concent. 31.3 g/dL (32.2-35.5); Mean Platelet Volume 9.8 fL (9.4-12.3); Monocyte (Absolute #) 0.49 x10^3/uL (0.24-0.86); Monocytes % 5.7 % (4.7-12.5); Neutrophil % 80.6 % (34.0-71.1); Platelet Count 278 x10^3/uL (182-369); Red Blood Count 2.98 x10^6/uL (3.93-5.22); Red Cell Distribution Width 12.7 % (11.7-14.4); White Blood Count 8.5 x10^3/uL (3.98-10.04)
[2025-02-20 14:44] LABS: ALBUMIN 3.5 g/dL (3.5-5.0); ANION GAP 16.6 MEQ/L (5-15); BILIRUBIN,TOTAL 0.8 mg/dL (0.2-1.3); Calcium 8.6 mg/dL (8.4-10.2); Creatinine 1 1.2 mg/dL (0.52-1.04); EST GLOMERULAR FILTRATION RATE 45.2 ML/MIN; Potassium 4.9 mmol/L (3.5-5.1); Total Protein 5.8 g/dL (6.3-8.2)
[2025-02-20] MEDS ORDERED: Zofran 4 MG/2 ML VIAL ONE (14:45)
[2025-02-20] MEDS ORDERED: SUBLIMAZE 100 MCG/2 ML ONE (14:45)
[2025-02-20] MEDS: SUBLIMAZE 100 MCG/2 ML IV ONE (14:51)
[2025-02-20] MEDS: Zofran 4 MG/2 ML VIAL IV ONE (14:51)
[2025-02-20 15:28] VITALS: BP 150/68
--- NOTE | 2025-02-20 15:48 | ERPHSYRPT ---
- History of Present Illness Time Seen by Provider: 02/20/25 13:15 Historian: patient, family Exam Limitations: no limitations Patient Subjective Stated Complaint: C/O abdominal pain that began around 11:30am today. NO vomiting or diarrhea. Triage Nursing Assessment: Patient transferred from chair to bed with stand by assistance. She is alert and oriented. NO SOB. No cough. Skin tone normal. Some edema present to BLE. Physician History: 84 years old female with history of hypertension, hyperlipidemia, hypothyroidism , atrial fibrillation on Eliquis presented in the ER with complains of sudden onset right-sided abdominal pain with some radiation to the right shoulder area around 11:30 AM. Denies associated nausea or vomiting. No history of constipation. Pain is moderate to severe sharp shooting with no significant aggravating or relieving factors. Denies any history of GERD symptoms/biliary colic. Allergies/Adverse Reactions: hydrocodone [Hydrocodone] Allergy (Intermediate, Verified 02/20/25 13:20) tuberculin,PPD,multi-puncture Allergy (Intermediate, Verified 02/20/25 13:20) Swelling Home Medications: Levothyroxine Sodium 88 Mcg [Synthroid 88 Mcg] 88 mcg PO DAILY 05/11/13 [History] Omeprazole 20 MG [Prilosec 20 mg] 40 mg PO DAILY 05/11/13 [History] Atorvastatin Calcium 80 mg PO QHS 11/29/16 [History] Metformin HCl 500 mg PO BID 11/29/16 [History] PARoxetine HCL [Paroxetine HCl] 10 mg PO HS 11/29/16 [History] Cyanocobalamin (Vitamin B-12) [B-12] 1,000 mcg PO DAILY 08/31/17 [History] Ubidecarenone/Vit E Acet [Co Q-10 100 mg Softgel] 1 tab PO DAILY 08/31/17 [History] carvediloL [Coreg] 25 mg PO BID 08/31/17 [History] Apixaban [Eliquis] 5 mg PO BID 10/09/17 [History] Ascorbic Acid 500 mg [Vitamin C 500 MG] 500 mg PO DAILY 09/28/19 [History] Ergocalciferol (Vitamin D2) [Vitamin D] 1 cap PO WEEKLY 09/28/19 [History] Ferric Citrate [Auryxia] 1 tab PO DAILY 09/28/19 [History] Folic Acid 1 mg [Folate 1 mg] 1 mg PO DAILY 09/28/19 [History] Furosemide [Lasix] 20 mg PO DAILY 09/28/19 [History] Magnesium 400 mg PO DAILY 09/28/19 [History] Ferrous Sulfate 325 mg [Feosol 325 mg] 325 mg PO DAILY 02/20/25 [History] Sacubitril/Valsartan [Entresto 24 mg-26 mg Tablet] 1 tab PO BID 02/20/25 [History] Hx Tetanus, Diphtheria Vaccination/Date Given: Yes Hx Influenza Vaccination/Date Given: Yes Hx Pneumococcal Vaccination/Date Given: Yes Immunizations Up to Date: Yes Travel Risk - International Travel Have you traveled outside of the country in past 3 weeks: No - Emerging Infectious Disease Are you exhibiting symptoms associated with any current EIDs: Yes Symptoms: Abdominal Pain - Review of Systems Constitutional: No Symptoms Ears, Nose, & Throat: No Symptoms Respiratory: No Symptoms Cardiac: No Symptoms Abdominal/Gastrointestinal: Abdominal Pain Genitourinary Symptoms: No Symptoms Musculoskeletal: No Symptoms Skin: No Symptoms Neurological: No Symptoms Psychological: No Symptoms Immunological/Allergic: No Symptoms - Past Medical History Pertinent Past Medical History: Yes Neurological History: No Pertinent History ENT History: No Pertinent History Cardiac History: Arrhythmia, Coronary Artery Disease, High Cholesterol, Hypertension, Myocardial Infarction ([place]), Other Respiratory History: CHF, Sleep Apnea Endocrine Medical History: Diabetes Type II, Hypothyroidism Musculoskeletal History: Arthritis GI Medical History: GERD History: Renal Disease Psycho-Social History: Panic Disorder Female Reproductive Disorders: No Pertinent History Other Medical History: [facility] [place], warehouser: Adebayo Holloway, Sap Analyst: Dr. Kowalski - Past Surgical History Past Surgical History: Yes Neuro Surgical History: No Pertinent History Cardiac: Cardiac Catheterization, Cardiac Stent, Pacemaker Respiratory: No Pertinent History Gastrointestinal: Appendectomy Genitourinary: No Pertinent History Musculoskeletal: Joint Replacement Female Surgical History: Tubal Ligation, Other Other Surgical History: bilateral knee replacement, uterine suspension Significant Family History: heart disease, hypertension - Social History Smoking Status: Never smoker Exposure to second hand smoke: No Drug Use: none - Social Determinants of Health Will the patient participate in the screening: Yes Do you worry about a steady place to live?: No Do you have any problems with any of the following?: No known problems In the past 12 months,have you had to go without utilities?: No Transportation Issues: No Has anyone in your support network made you feel unsafe?: No Have you or anyone in your house had to go w/o enough food: No - Nursing Vital Signs Nursing Vital Signs: Initial Vital Signs Temperature 97.9 F 02/20/25 13:20 Pulse Rate 71 02/20/25 13:20 Respiratory Rate 18 02/20/25 13:20 Blood Pressure 152/78 02/20/25 13:20 O2 Sat by Pulse Oximetry 98 02/20/25 13:20 Pain Scale Pain Intensity 7 - Physical Exam General Appearance: no apparent distress Ears, Nose, Throat Exam: normal ENT inspection, pharynx normal Neck Exam: normal inspection, full range of motion Respiratory Exam: normal breath sounds, lungs clear Cardiovascular Exam: regular rate/rhythm, normal heart sounds Gastrointestinal/Abdomen Exam: soft, tenderness (Epigastric/right upper quadrant) Extremity Exam: normal inspection, normal range of motion Neurologic Exam: alert, oriented x 3, cooperative Skin Exam: normal color SpO2 Interpretation: normal SpO2: 97 O2 Delivery: Room Air Ordered Tests: Active Orders 24 hr Category Date Time Status IV Insertion STAT Care 02/20/25 13:58 Active NPO (ED) STAT Care 02/20/25 13:58 Active GALLBLADDER [US] Stat Exams 02/20/25 13:58 Completed CBC W DIFF Stat Lab 02/20/25 14:10 Completed CMP Stat Lab 02/20/25 14:10 Completed LIPASE Stat Lab 02/20/25 14:10 Completed Lactic Acid Stat Lab 02/20/25 14:20 Completed TROPONIN Q4H Lab 02/20/25 14:10 Completed TROPONIN Q4H Lab 02/20/25 18:00 Ordered TROPONIN Q4H Lab 02/20/25 22:00 Ordered UA W/RFX UR CULTURE Stat Lab 02/20/25 13:58 Ordered Medication Summary Discontinued Medications Generic Name Dose Route Start Last Admin Trade Name Freq PRN Reason Stop Dose Admin Fentanyl Citrate 50 mcg 02/20/25 13:58 02/20/25 14:51 Fentanyl Citrate 100 Mcg/2 Ml* Vial IV 02/20/25 13:59 50 mcg STAT ONE Administration Fentanyl Citrate Confirm 02/20/25 14:45 Fentanyl Citrate 100 Mcg/2 Ml* Vial Administered 02/20/25 14:46 Dose 100 mcg .ROUTE .STK-MED ONE Ondansetron HCl 4 mg 02/20/25 13:58 02/20/25 14:51 Ondansetron Hcl 4 Mg/2 Ml Vial IV 02/20/25 13:59 4 mg STAT ONE Administration Ondansetron HCl Confirm 02/20/25 14:45 Ondansetron Hcl 4 Mg/2 Ml Vial Administered 02/20/25 14:46 Dose 4 mg .ROUTE .STK-MED ONE Lab/Rad Data: Laboratory Result Diagrams 02/20/25 14:10 02/20/25 14:10 Laboratory Results 02/20/25 02/20/25 02/20/25 Range/Units 14:20 14:10 14:10 WBC (3.98-10.04) x10^3/uL RBC (3.93-5.22) x10^6/uL Hgb (11.2-15.7) g/dL Hct (34.1-44.9) % MCV (79.4-94.8) fL MCH (25.6-32.2) pg MCHC (32.2-35.5) g/dL RDW (11.7-14.4) % Plt Count (182-369) x10^3/uL MPV (9.4-12.3) fL Gran % (34.0-71.1) % Immature Gran % (Auto) (0.001-0.429) % Nucleat RBC Rel Count (0.00-0.2) % Eos # (Auto) (0.04-0.36) x10^3/uL Immature Gran # (Auto) (0.001-0.031) x10^3u/L Absolute Lymphs (auto) (1.18-3.74) x10^3/uL Absolute Monos (auto) (0.24-0.86) x10^3/uL Absolute Nucleated RBC (0.00-0.012) x10^3u/L Lymphocytes % (19.3-51.7) % Monocytes % (4.7-12.5) % Eosinophils % (0.7-5.8) % Basophils % (0.1-1.2) % Absolute Granulocytes (1.56-6.13) x10^3/uL Basophils # (0.01-0.08) x10^3/uL Sodium 143 (135-145) mmol/L Potassium 4.9 (3.5-5.1) mmol/L Chloride 108 H (98-107) mmol/L Carbon Dioxide 22 (22-30) mmol/L Anion Gap 16.6 H (5-15) MEQ/L BUN 22 H (7-17) mg/dL Creatinine 1.20 H (0.52-1.04) mg/dL Estimated GFR 45.2 ML/MIN Glucose 110 H (74-106) mg/dL Lactic Acid 1.3 (0.4-2.0) Calcium 8.6 (8.4-10.2) mg/dL Total Bilirubin 0.80 (0.2-1.3) mg/dL AST 23 (14-36) U/L ALT 12 (0-35) U/L Alkaline Phosphatase 98 (38-126) U/L Troponin I < 0.012 (0.000-0.033) ng/mL Serum Total Protein 5.8 L (6.3-8.2) g/dL Albumin 3.5 (3.5-5.0) g/dL Lipase 86 (23-300) U/L 02/20/25 Range/Units 14:10 WBC 8.5 (3.98-10.04) x10^3/uL RBC 2.98 L (3.93-5.22) x10^6/uL Hgb 8.9 L (11.2-15.7) g/dL Hct 28.4 L (34.1-44.9) % MCV 95.3 H (79.4-94.8) fL MCH 29.9 (25.6-32.2) pg MCHC 31.3 L (32.2-35.5) g/dL RDW 12.7 (11.7-14.4) % Plt Count 278 (182-369) x10^3/uL MPV 9.8 (9.4-12.3) fL Gran % 80.6 H (34.0-71.1) % Immature Gran % (Auto) 0.4 (0.001-0.429) % Nucleat RBC Rel Count 0.0 (0.00-0.2) % Eos # (Auto) 0.04 (0.04-0.36) x10^3/uL Immature Gran # (Auto) 0.03 (0.001-0.031) x10^3u/L Absolute Lymphs (auto) 1.06 L (1.18-3.74) x10^3/uL Absolute Monos (auto) 0.49 (0.24-0.86) x10^3/uL Absolute Nucleated RBC 0.00 (0.00-0.012) x10^3u/L Lymphocytes % 12.4 L (19.3-51.7) % Monocytes % 5.7 (4.7-12.5) % Eosinophils % 0.5 L (0.7-5.8) % Basophils % 0.4 (0.1-1.2) % Absolute Granulocytes 6.88 H (1.56-6.13) x10^3/uL Basophils # 0.03 (0.01-0.08) x10^3/uL Sodium (135-145) mmol/L Potassium (3.5-5.1) mmol/L Chloride (98-107) mmol/L Carbon Dioxide (22-30) mmol/L Anion Gap (5-15) MEQ/L BUN (7-17) mg/dL Creatinine (0.52-1.04) mg/dL Estimated GFR ML/MIN Glucose (74-106) mg/dL Lactic Acid (0.4-2.0) Calcium (8.4-10.2) mg/dL Total Bilirubin (0.2-1.3) mg/dL AST (14-36) U/L ALT (0-35) U/L Alkaline Phosphatase (38-126) U/L Troponin I (0.000-0.033) ng/mL Serum Total Protein (6.3-8.2) g/dL Albumin (3.5-5.0) g/dL Lipase (23-300) U/L - Progress Progress: improved, re-examined Progress Note: 02/20/25 17:16 84-year-old is evaluated in the ER for epigastric and right upper quadrant pain sudden onset around 11:30 AM today. Patient has some tenderness but no guarding in the right upper quadrant. She is given symptomatic treatment with one-time dose of 50 mcg fentanyl, on reevaluation her pain is completely resolved. Workup showed normal white count, hemoglobin of 8.9, chemistries with liver functions, CKD at baseline. I have obtained right upper quadrant ultrasound which showed borderline thickening of the gallbladder but no pericholecystic fluid and no cholelithiasis. No CBD stone or dilatation. I have offered CT abdomen pelvis but patient is symptom-free and would like to go home. Recommended outpatient follow-up with primary care to schedule for HIDA scan. Also discussed in detail about signs symptoms of worsening needing return to ER which patient/daughter seemed understanding. Stable for discharge. Counseled pt/family regarding: lab results, diagnosis, need for follow-up, rad results Medical Desision Making - Independent Historian Additional History obtained from: Child - Diagnostic Testing Diagnostic test were ordered, analyzed, and reviewed by me: Yes Radiological Interpretation: Reviewed by me - Risk of complications The pt has a mod risk of morbidity or mortality based on: Need for prescription drug management - Departure Departure Disposition: Home Clinical Impression: Right upper quadrant pain Condition: Stable Critical Care Time: No Referrals: JUAN FONSECA MD [Primary Care Provider] - Follow up with PCP 1 day Instructions: Severe Abdominal Pain, Adult (DC) Additional Instructions: Follow-up with primary care for reevaluation and need outpatient HIDA scan scheduled for further evaluation of gallbladder. Return to ER if again having pain or associated nausea or vomiting/fever chills etc.
--- NOTE | 2025-02-20 16:29 | XRAY ---
Indication: Epigastric and right upper quadrant pain. Two-dimensional gallbladder sonogram performed. Comparison: None Visualized gallbladder normally distended without gallstones. Borderline gallbladder wall thickening up to 3.8 mm. No pericholecystic fluid. Common bile duct measures 3.6 mm. No intrahepatic biliary distention. Right kidney measures 9.3 x 5.2 x 4.8 cm with 2 cm upper pole cortical cyst. Remaining visualized liver and pancreas are sonographically unremarkable. Impression: 1. Borderline gallbladder wall thickening. Negative cholelithiasis. Rule out chronic acalculus cholecystitis. 2. Incidental right renal cyst.
[2025-02-20 17:58] VITALS: PULSE 76; RESP 22; O2SAT 98
== END 2025-02-20 17:55 | disposition home or self-care (01) ==
LOC: ED 13:09
DX: R10.11 Right upper quadrant pain (principal); I10 Essential (primary) hypertension; E78.5 Hyperlipidemia, unspecified; E11.9 Type 2 diabetes mellitus without complications; Z79.01 Long term (current) use of anticoagulants; Z79.84 Long term (current) use of oral hypoglycemic drugs; Z79.899 Other long term (current) drug therapy
CPT/HCPCS: 36415; 76705; 80053; 83605; 83690; 84484; 85025; 96374; 96375; 99284; J2405; J3010

== ENCOUNTER 2025-09-21 22:43 | Inpatient (IN) | payer MEDICARE, OTHER ==
[2025-09-21] MEDS ORDERED: Hydromorphone 1 mg/ml Injection ONE (22:57)
[2025-09-21] MEDS ORDERED: Zofran 4 MG/2 ML VIAL ONE (22:57)
[2025-09-21] MEDS: Hydromorphone 1 mg/ml Injection IV ONE (22:58)
[2025-09-21] MEDS: Zofran 4 MG/2 ML VIAL IV ONE (22:58)
[2025-09-21 23:10] LABS: BASOPHIL % 0.5 % (0.1-1.2); Basophil (Absolute #) 0.04 x10^3/uL (0.01-0.08); Eosinophil (Absolute #) 0.10 x10^3/uL (0.04-0.36); Hematocrit 35.1 % (34.1-44.9); Hemoglobin 10.1 g/dL (11.2-15.7); IMMATURE GRAN # 0.02 x10^3u/L (0.001-0.031); IMMATURE GRAN % 0.3 % (0.001-0.429); Lymphocyte (Absolute #) 1.24 x10^3/uL (1.18-3.74); Mean Corpuscular Hemoglobin 28.5 pg (25.6-32.2); Mean Corpuscular Hgb Concent. 28.8 g/dL (32.2-35.5); Monocyte (Absolute #) 0.66 x10^3/uL (0.24-0.86); NUCLEATED RBC # 0.00 x10^3u/L (0.00-0.012); NUCLEATED RBC % 0.0 % (0.00-0.2); Platelet Count 295 x10^3/uL (182-369); Red Blood Count 3.55 x10^6/uL (3.93-5.22); White Blood Count 7.6 x10^3/uL (3.98-10.04)
[2025-09-21 23:30] LABS: Calcium 8.7 mg/dL (8.4-10.2); Carbon Dioxide 25.0 mmol/L (22-30); Creatinine 1 2.95 mg/dL (0.52-1.04); EST GLOMERULAR FILTRATION RATE 15.4 ML/MIN; Glucose 192.0 mg/dL (74-106); SGOT/AST 19.0 U/L (14-36); SGPT/ALT 10.0 U/L (0-35); Total Protein 6.8 g/dL (6.3-8.2)
[2025-09-21 23:35] LABS: Potassium 6.9 mmol/L (3.5-5.1)
[2025-09-21 23:48] LABS: INFLUENZA A NEGATIVE (NEGATIVE); INFLUENZA B NEGATIVE (NEGATIVE); RESPIRATORY SYNCTIAL VIRUS NEGATIVE (NEGATIVE); SARS-CoV-2 Xpert Express NEGATIVE (NEGATIVE)
[2025-09-21 23:59] LABS: Slide Review 1 YES
[2025-09-22 00:07] LABS: Calcium 8.5 mg/dL (8.4-10.2); Carbon Dioxide 26.0 mmol/L (22-30); Creatinine 1 3.2 mg/dL (0.52-1.04); EST GLOMERULAR FILTRATION RATE 13.9 ML/MIN; Glucose 180.0 mg/dL (74-106)
[2025-09-22 00:12] LABS: Potassium 6.7 mmol/L (3.5-5.1)
[2025-09-22] MEDS ORDERED: PROVENTIL 2.5 MG/3 ML NEB IH ONE (00:17)
[2025-09-22] MEDS ORDERED: Calcium Gluconate 10% 1000 MG IV ONE (00:19)
[2025-09-22] MEDS ORDERED: HUMULIN R ONE (00:19)
[2025-09-22] MEDS ORDERED: D50W 50 ml Abboject IV ONE (00:20)
[2025-09-22] MEDS: PROVENTIL 2.5 MG/3 ML NEB IH ONE (00:20)
[2025-09-22] MEDS ORDERED: SODIUM BICARBONATE 50 MEQ/50 ML ABBOJECT IV ONE (00:20)
[2025-09-22] MEDS: Calcium Gluconate 10% 1000 MG IV ONE (00:27)
[2025-09-22] MEDS: SODIUM BICARBONATE 50 MEQ/50 ML ABBOJECT IV ONE (00:28)
--- NOTE | 2025-09-22 00:30 | XRAY ---
CLINICAL HISTORY: abdominal pain COMPARISON: None. TECHNIQUE: Contiguous axial images were obtained from the level of the diaphragm to the pubic symphysis without intravenous or oral contrast. Coronal and sagittal reconstructions were likewise performed and indicated to increase the sensitivity for detecting clinically relevant pathology. The CT scan was performed according to ALARA (as low as reasonably achievable). FINDINGS: Mild right pleural effusion with basal subsegmental collapse of the right lower lobe is seen. Evaluation of the abdominal and pelvic visceral organs is limited without intravenous contrast. The unenhanced liver, spleen, pancreas, and adrenal glands are grossly unremarkable. Multiple calcified splenic granulomata are seen. The gallbladder shows layering density without cholecystitis. Ultrasound correlation is suggested. The kidneys are normal in size and attenuation without obvious calcification. There is no hydronephrosis or perinephric stranding. Few cortical cysts are noted in both kidneys. The ureters are normal in caliber. No adenopathy or fluid collections are seen. No evidence of focal or diffuse bowel wall thickening or bowel obstruction is seen. No imaging evidence of appendicitis. The aorta is normal in caliber. The urinary bladder is normal in contour. The pelvic viscera are grossly unremarkable. No aggressive appearing osseous lesions are identified. Multiple small uncomplicated sigmoid colonic diverticula are present. Small umbilical hernia containing a bowel loop. The herniated bowel loop shows mild adjacent fat stranding, suggestive of mild inflammatory changes. However, there is no obvious proximal bowel obstruction in the current study. Follow-up is suggested. IMPRESSION: 1. Mild right pleural effusion with basal subsegmental collapse of the right lower lobe is seen. 2. Multiple small uncomplicated sigmoid colonic diverticula are present. 3. Small umbilical hernia containing a bowel loop. The herniated bowel loop shows mild adjacent fat stranding, possiblity of early strandgulation couldnot be ruled out. However, there is no obvious proximal bowel obstruction in the current study. Follow-up is suggested. 4. Few cortical cysts are noted in both kidneys. 5. Multiple calcified splenic granulomata are seen. Electronically Signed by: Boy Brooks MD. (09/22/2025 00:28:33 EST)
[2025-09-22] MEDS: D50W 50 ml Abboject IV ONE (00:31)
[2025-09-22] MEDS: HUMULIN R IV ONE (00:33)
--- NOTE | 2025-09-22 01:04 | XRAY ---
CLINICAL HISTORY: PNA, chest pain COMPARISON: None. TECHNIQUE: Contiguous axial images were obtained from the base of the neck through the upper abdomen without contrast. In addition, sagittal and coronal reconstructions were performed to potentially increase the sensitivity for the detection of disease. The CT scan was performed according to ALARA (as low as reasonably achievable). FINDINGS: There is a mild right pleural effusion and a minimal left pleural effusion. Smooth interlobular septal thickening is seen diffusely in the bilateral upper lobes, and subpleural septal thickening is present in the bilateral lower lobes. Mild cardiomegaly is present. A cardiac pacemaker is seen in place. A few small calcifications are seen in the left breast parenchyma. There is a 4.5 mm calcified nodule in the anterior segment of the right upper lobe. The central airways are patent. No pneumothorax is seen. Evaluation of the mediastinum and cezar is limited due to the lack of intravenous contrast. Small mediastinal adenopathy is identified. The thyroid is unremarkable. There are appreciable coronary artery or aortic atherosclerotic calcifications. No pericardial effusion is identified. Imaged portions of the upper abdomen are unremarkable. Degenerative changes are present in the visualized spine in form of endplate irregularity. IMPRESSION: 1. There is a mild right pleural effusion and a minimal left pleural effusion. 2. Smooth interlobular septal thickening is seen diffusely in the bilateral upper lobes, and subpleural septal thickening is noted in the bilateral lower lobes. 3. Mild cardiomegaly is present. 4. Features are likely consistent with pulmonary congestion/pulmonary edema. Electronically Signed by: Boy Brooks MD. (09/22/2025 01:02:57 EST)
--- NOTE | 2025-09-22 01:26 | ERPHSYRPT ---
- History of Present Illness Time Seen by Provider: 09/21/25 22:49 Source: patient, family, EMS Exam Limitations: no limitations Patient Subjective Stated Complaint: Pt. states, "I couldn't get up off the toilet, my daughter had to help me. I started having N/V/D about an hour ago. Now my stomach hurts and its moving up into the left side of my chest." Triage Nursing Assessment: Pt. arrives via ambulance, she is A&Ox3, Skin pale, warm and dry, Resp. even unlabored, 3+ p. edema in BLE. Physician History: Patient is here with nausea, vomiting, diarrhea. Started 1 hour ago. Patient also having some abdominal pain. Patient states that she sat down on the toilet, she felt too weak to get up. She her daughters needed to come help her and they called EMS. Of note, patient was recently put on 100 mg of torsemide daily. This was approximately 3 weeks ago. Patient has had a 30 pound weight loss since this. Family states that she is much less swollen. She has no current chest pain, fever, chills. Otherwise has been in her normal state of health. Patient does take potassium pills daily. She otherwise does not feel ill. Complains of some abdominal pain around an umbilical hernia. Allergies/Adverse Reactions: hydrocodone [Hydrocodone] Allergy (Intermediate, Verified 07/07/25 12:04) Rash tuberculin,PPD,multi-puncture Allergy (Intermediate, Verified 06/18/25 09:11) Swelling Home Medications: Omeprazole 20 MG [Prilosec 20 mg] 40 mg PO DAILY 05/11/13 [History] Atorvastatin Calcium 80 mg PO QHS 11/29/16 [History] Metformin HCl 500 mg PO .1200,2200 11/29/16 [History] PARoxetine HCL [Paroxetine HCl] 10 mg PO DAILY 11/29/16 [History] Cyanocobalamin (Vitamin B-12) [B-12] 1,000 mcg PO HS 08/31/17 [History] Ubidecarenone/Vit E Acet [Co Q-10 100 mg Softgel] 1 cap PO 1200 08/31/17 [History] carvediloL [Coreg] 25 mg PO BID 08/31/17 [History] Apixaban [Eliquis] 5 mg PO BID 10/09/17 [History] Sacubitril/Valsartan [Entresto 24 mg-26 mg Tablet] 1 tab PO BID 02/20/25 [History] Albuterol Sulfate [Albuterol Sulfate Hfa] 2 puffs IH Q6H PRN PRN 07/07/25 [History] Epoetin Jeremías [Procrit] 40,000 units SQ Q14D 07/07/25 [History] Ascorbic Acid [Vitamin C] 1,000 mg PO DAILY 09/21/25 [History] Folic Acid 0.4 mg PO DAILY 09/21/25 [History] Magnesium Oxide 400 mg PO DAILY 09/21/25 [History] Potassium Chloride 20 meq PO BID 09/21/25 [History] Thyroid,Pork [[place] Thyroid] 90 mg PO DAILY 09/21/25 [History] Torsemide 100 mg PO DAILY 09/21/25 [History] Hx Tetanus, Diphtheria Vaccination/Date Given: No Hx Influenza Vaccination/Date Given: No Hx Pneumococcal Vaccination/Date Given: Yes Travel Risk - International Travel Have you traveled outside of the country in past 3 weeks: No - Emerging Infectious Disease Are you exhibiting symptoms associated with any current EIDs: No Symptoms: Cough: New Onset, Shortness of Breath - Past Medical History Pertinent Past Medical History: Yes Neurological History: No Pertinent History ENT History: No Pertinent History Cardiac History: Hypertension Respiratory History: CHF Endocrine Medical History: Diabetes Type II, Hypothyroidism Musculoskeletal History: No Pertinent History GI Medical History: GERD History: Renal Disease Psycho-Social History: Panic Disorder Female Reproductive Disorders: No Pertinent History Other Medical History: PMH: DM II, HTN, CHF - Past Surgical History Past Surgical History: Yes Neuro Surgical History: No Pertinent History Cardiac: Cardiac Catheterization, Cardiac Stent, Pacemaker Respiratory: No Pertinent History Gastrointestinal: Appendectomy Genitourinary: No Pertinent History Musculoskeletal: Joint Replacement Female Surgical History: Tubal Ligation, Other Other Surgical History: bilateral knee replacement, uterine suspension Significant Family History: heart disease, hypertension - Social History Smoking Status: Never smoker How long have you smoked: no Exposure to second hand smoke: No Drug Use: none - Social Determinants of Health Will the patient participate in the screening: Declined to provide - Nursing Vital Signs Nursing Vital Signs: Initial Vital Signs Temperature 97.0 F 09/21/25 22:46 Pulse Rate 83 09/21/25 22:46 Respiratory Rate 18 09/21/25 22:46 Blood Pressure 169/58 09/21/25 22:46 O2 Sat by Pulse Oximetry 96 09/21/25 22:46 Pain Scale Pain Intensity 1 - Physical Exam SpO2 Interpretation: normal SpO2: 95 Comments: 09/22/25 01:41 Review of Systems Constitutional: Negative for fever. HENT: Negative for congestion. Respiratory: Negative for shortness of breath. Cardiovascular: Negative for chest pain. Gastrointestinal: Negative for abdominal pain. Nausea and vomiting Genitourinary: Negative for dysuria. Musculoskeletal: Negative for back pain. Skin: Negative for rash. Neurological: Negative for headaches. Psychiatric/Behavioral: Negative for behavioral problems. All other systems reviewed and are negative. Physical Exam Vitals signs and nursing note reviewed. Constitutional: Appearance: Patient is well-developed. HENT: Head: Normocephalic and atraumatic. Eyes: Conjunctiva/sclera: Conjunctivae normal. Neck: Musculoskeletal: Normal range of motion. Trachea: No tracheal deviation. Cardiovascular: Rate and Rhythm: Normal rate. Heart sounds normal. 1+ lower extremity edema, lung sounds clear Pulmonary: Effort: Pulmonary effort is normal. No respiratory distress. Abdominal: Palpations: Abdomen is soft. Umbilical hernia. It is not overly red, there is tenderness when I push on it. No surrounding erythema. It is not reducible. Musculoskeletal: General: No deformity. Skin: General: Skin is warm and dry. Neurological/ Psychiatric: Mental Status: Mental status, behavior, interaction with environment is appropriate for patient's age and condition - Course Nursing assessment & vital signs reviewed: Yes EKG Interpreted by Me: RATE (EKG my interpretation at 2253 demonstrates atrial sensed ventricular paced rhythm, rate of 82, UT interval 215, QRS 182, QTc is 507) Ordered Tests: Active Orders 24 hr Category Date Time Status EKG-ER Only STAT Care 09/21/25 22:49 Active IV Insertion STAT Care 09/21/25 22:49 Active ABDOMEN AND PELVIS W/0 CONTRAS [CT] Stat Exams 09/21/25 23:43 Completed CHEST WITHOUT CONTRAST [CT] Stat Exams 09/21/25 23:42 Completed BMP Stat Lab 09/21/25 23:52 Completed BMP Stat Lab 09/22/25 01:32 Received CBC W DIFF Stat Lab 09/21/25 23:07 Completed CMP Stat Lab 09/21/25 23:07 Completed LIPASE Stat Lab 09/21/25 23:07 Completed Lactic Acid Stat Lab 09/21/25 23:01 Completed NT PRO BNPII Stat Lab 09/22/25 01:32 Received TROPONIN Q4H Lab 09/21/25 23:07 Completed TROPONIN Q4H Lab 09/22/25 01:32 Received TROPONIN Q4H Lab 09/22/25 07:00 Ordered Respiratory Therapy Assessment DAILY RT 09/22/25 00:28 Active Transfer Order Routine Transfer 09/22/25 Ordered Medication Summary Discontinued Medications Generic Name Dose Route Start Last Admin Trade Name Richieq PRN Reason Stop Dose Admin Albuterol Sulfate 2.5 mg 09/22/25 00:14 09/22/25 00:20 Albuterol Sulfate 2.5 Mg/3 Ml Neb IH 09/22/25 00:15 2.5 mg STAT ONE Administration Albuterol Sulfate Confirm 09/22/25 00:17 Albuterol Sulfate 2.5 Mg/3 Ml Neb Administered 09/22/25 00:18 Dose 2.5 mg IH .STK-MED ONE Calcium Gluconate 1,000 mg 09/22/25 00:14 09/22/25 00:27 Calcium Gluconate 1000 Mg/10 Ml Vial IV 09/22/25 00:15 1,000 mg STAT ONE Administration Calcium Gluconate Confirm 09/22/25 00:19 Calcium Gluconate 1000 Mg/10 Ml Vial Administered 09/22/25 00:20 Dose 1,000 mg IV .STK-MED ONE Dextrose 50 ml 09/22/25 00:14 09/22/25 00:31 Dextrose 50%-Water 50 Ml Abboject IV 09/22/25 00:15 50 ml STAT ONE Administration Dextrose Confirm 09/22/25 00:20 Dextrose 50%-Water 50 Ml Abboject Administered 09/22/25 00:21 Dose 50 ml IV .STK-MED ONE Hydromorphone HCl 0.5 mg 09/21/25 22:49 09/21/25 22:58 Hydromorphone 1 Mg/1ml Inj IV 09/21/25 22:50 0.5 mg STAT ONE Administration Hydromorphone HCl Confirm 09/21/25 22:57 Hydromorphone 1 Mg/1ml Inj Administered 09/21/25 22:58 Dose 1 mg .ROUTE .STK-MED ONE Sodium Chloride 1,000 mls @ 999 mls/hr 09/22/25 00:14 09/22/25 01:27 Sodium Chloride 0.9% 1000 Ml IV 09/22/25 01:14 999 mls/hr .Q1H1M STA Infusion Sodium Chloride Confirm 09/22/25 00:20 Sodium Chloride 0.9% 1000 Ml Administered 09/22/25 00:21 Dose 1,000 mls @ ud .ROUTE .STK-MED ONE Insulin Human Regular 5 unit 09/22/25 00:14 09/22/25 00:33 Insulin Regular, Human 1 Unit IV 09/22/25 00:15 5 unit STAT ONE Administration Insulin Human Regular Confirm 09/22/25 00:19 Insulin Regular, Human 1 Unit Administered 09/22/25 00:20 Dose 5 unit .ROUTE .STK-MED ONE Ondansetron HCl 4 mg 09/21/25 22:49 09/21/25 22:58 Ondansetron Hcl 4 Mg/2 Ml Vial IV 09/21/25 22:50 4 mg STAT ONE Administration Ondansetron HCl Confirm 09/21/25 22:57 Ondansetron Hcl 4 Mg/2 Ml Vial Administered 09/21/25 22:58 Dose 4 mg .ROUTE .STK-MED ONE Sodium Bicarbonate 50 meq 09/22/25 00:14 09/22/25 00:28 Sodium Bicarbonate 1 Meq/Ml 50ml Syringe IV 09/22/25 00:15 50 meq STAT ONE Administration Sodium Bicarbonate Confirm 09/22/25 00:20 Sodium Bicarbonate 1 Meq/Ml 50ml Syringe Administered 09/22/25 00:21 Dose 50 meq IV .STK-MED ONE Lab/Rad Data: Laboratory Result Diagrams 09/21/25 23:07 09/21/25 23:52 Laboratory Results 09/21/25 09/21/25 09/21/25 Range/Units 23:52 23:07 23:07 WBC (3.98-10.04) x10^3/uL RBC (3.93-5.22) x10^6/uL Hgb (11.2-15.7) g/dL Hct (34.1-44.9) % MCV (79.4-94.8) fL MCH (25.6-32.2) pg MCHC (32.2-35.5) g/dL RDW (11.7-14.4) % Plt Count (182-369) x10^3/uL MPV (9.4-12.3) fL Gran % (34.0-71.1) % Immature Gran % (Auto) (0.001-0.429) % Nucleat RBC Rel Count (0.00-0.2) % Eos # (Auto) (0.04-0.36) x10^3/uL Immature Gran # (Auto) (0.001-0.031) x10^3u/L Absolute Lymphs (auto) (1.18-3.74) x10^3/uL Absolute Monos (auto) (0.24-0.86) x10^3/uL Absolute Nucleated RBC (0.00-0.012) x10^3u/L Lymphocytes % (19.3-51.7) % Monocytes % (4.7-12.5) % Eosinophils % (0.7-5.8) % Basophils % (0.1-1.2) % Absolute Granulocytes (1.56-6.13) x10^3/uL Basophils # (0.01-0.08) x10^3/uL Sodium 134 L (135-145) mmol/L Potassium 6.7 H* (3.5-5.1) mmol/L Chloride 101 (98-107) mmol/L Carbon Dioxide 26 (22-30) mmol/L Anion Gap 13.7 (5-15) MEQ/L BUN 40 H (7-17) mg/dL Creatinine 3.20 H (0.52-1.04) mg/dL Estimated GFR 13.9 ML/MIN Glucose 180 H (74-106) mg/dL Lactic Acid (0.4-2.0) Calcium 8.5 (8.4-10.2) mg/dL Total Bilirubin (0.2-1.3) mg/dL AST (14-36) U/L ALT (0-35) U/L Alkaline Phosphatase (38-126) U/L Troponin I < 0.012 (0.000-0.033) ng/mL Serum Total Protein (6.3-8.2) g/dL Albumin (3.5-5.0) g/dL Lipase (23-300) U/L Influenza Type A Ag NEGATIVE (NEGATIVE) Influenza Type B Ag NEGATIVE (NEGATIVE) RSV (PCR) NEGATIVE (NEGATIVE) SARS-CoV-2 (PCR) NEGATIVE (NEGATIVE) Slides for Path Review 09/21/25 09/21/25 09/21/25 Range/Units 23:07 23:07 23:01 WBC 7.6 (3.98-10.04) x10^3/uL RBC 3.55 L (3.93-5.22) x10^6/uL Hgb 10.1 L (11.2-15.7) g/dL Hct 35.1 (34.1-44.9) % MCV 98.9 H (79.4-94.8) fL MCH 28.5 (25.6-32.2) pg MCHC 28.8 L (32.2-35.5) g/dL RDW 19.8 H (11.7-14.4) % Plt Count 295 (182-369) x10^3/uL MPV 10.3 (9.4-12.3) fL Gran % 72.8 H (34.0-71.1) % Immature Gran % (Auto) 0.3 (0.001-0.429) % Nucleat RBC Rel Count 0.0 (0.00-0.2) % Eos # (Auto) 0.10 (0.04-0.36) x10^3/uL Immature Gran # (Auto) 0.02 (0.001-0.031) x10^3u/L Absolute Lymphs (auto) 1.24 (1.18-3.74) x10^3/uL Absolute Monos (auto) 0.66 (0.24-0.86) x10^3/uL Absolute Nucleated RBC 0.00 (0.00-0.012) x10^3u/L Lymphocytes % 16.4 L (19.3-51.7) % Monocytes % 8.7 (4.7-12.5) % Eosinophils % 1.3 (0.7-5.8) % Basophils % 0.5 (0.1-1.2) % Absolute Granulocytes 5.49 (1.56-6.13) x10^3/uL Basophils # 0.04 (0.01-0.08) x10^3/uL Sodium 134 L (135-145) mmol/L Potassium 6.9 H* (3.5-5.1) mmol/L Chloride 101 (98-107) mmol/L Carbon Dioxide 25 (22-30) mmol/L Anion Gap 15.2 H (5-15) MEQ/L BUN 43 H (7-17) mg/dL Creatinine 2.95 H (0.52-1.04) mg/dL Estimated GFR 15.4 ML/MIN Glucose 192 H (74-106) mg/dL Lactic Acid 1.4 (0.4-2.0) Calcium 8.7 (8.4-10.2) mg/dL Total Bilirubin 1.10 (0.2-1.3) mg/dL AST 19 (14-36) U/L ALT 10 (0-35) U/L Alkaline Phosphatase 133 H (38-126) U/L Troponin I (0.000-0.033) ng/mL Serum Total Protein 6.8 (6.3-8.2) g/dL Albumin 3.8 (3.5-5.0) g/dL Lipase 165 (23-300) U/L Influenza Type A Ag (NEGATIVE) Influenza Type B Ag (NEGATIVE) RSV (PCR) (NEGATIVE) SARS-CoV-2 (PCR) (NEGATIVE) Slides for Path Review YES - Progress Progress: improved Progress Note: 09/22/25 01:44 Differential diagnosis includes: PNA, STEMI, NSTEMI, other infection, musculoskeletal pain, pneumothorax, umbilical hernia, congestive heart failure - We'll obtain basic labs, fluids, EKG, troponin, chest x-ray - EKG shows no ST changes - my read - O2 saturations consistently greater than 95%. Patient appears clinically dry on my exam. We did obtain basic labs, CT scan chest abdomen pelvis. Patient was found to have hyperkalemia, we did retest a BMP to ensure that she was not hemolyzed. This again demonstrated elevated creatinine and potassium. CT scan chest abdomen pelvis demonstrated a umbilical hernia. No secondary signs of strangulation. Lactic acid is normal, no elevation of white blood cell count. I did discuss over the phone with on-call general surgery my exam and findings, Donell Vidal MD. we discussed the case in detail, he stated that he would see patient first thing in the morning. Patient was treated with the hyperkalemia protocol. 500 mL of fluid was given because of her clinical dryness on exam. CT scan did show possible pulmonary edema, effusions. Likely a balancing act given her creatinine that is now elevated and her history of CHF. I did discuss over the phone with on-call hospitalist, Dr. Edward Tavarez. We again discussed the case in detail. Made the decision to admit the patient to his service here. Will continue to monitor patient closely until time of transfer to the floor. Patient is awake and alert, continues to look well. I did repeat my umbilical hernia exam. Continues to appear not strangulated, no overlying skin necrosis, tenting. Counseled pt/family regarding: lab results, diagnosis, need for follow-up, rad results - Departure Departure Disposition: In-patient Admission Clinical Impression: VEENA (acute kidney injury), Hyperkalemia, Pulmonary edema, Umbilical hernia Condition: Stable Critical Care Time: Yes Critical Care Time(excluding separately billable procedures): Critical 30-74 mins Referrals: JUAN FONSECA MD [Primary Care Provider, [facility]] - Follow up/PCP as directed
[2025-09-22 01:49] LABS: Calcium 8.5 mg/dL (8.4-10.2); Carbon Dioxide 26.0 mmol/L (22-30); Creatinine 1 2.97 mg/dL (0.52-1.04); EST GLOMERULAR FILTRATION RATE 15.2 ML/MIN; Glucose 189.0 mg/dL (74-106)
[2025-09-22 01:52] LABS: Potassium 5.8 mmol/L (3.5-5.1)
[2025-09-22 02:01] LABS: NT PRO BNPII 10900 pg/mL (<300); TROPONIN < 0.012 ng/mL (0.000-0.033)
[2025-09-22] MEDS: ZOCOR 20MG PO ONE (03:00)
[2025-09-22] MEDS: COREG 12.5 MG PO ONE (03:00)
[2025-09-22] MEDS: ELIQUIS 2.5 MG TABLET PO ONE (03:01)
[2025-09-22 06:00] LABS: Calcium 8.5 mg/dL (8.4-10.2); Carbon Dioxide 27.0 mmol/L (22-30); Creatinine 1 2.94 mg/dL (0.52-1.04); EST GLOMERULAR FILTRATION RATE 15.4 ML/MIN; Glucose 127.0 mg/dL (74-106)
[2025-09-22 06:03] LABS: Potassium 5.9 mmol/L (3.5-5.1)
[2025-09-22] MEDS ORDERED: VENTOLIN COMMON CANISTER IH PRN (06:32)
--- NOTE | 2025-09-22 06:54 | PCM.HP ---
History of Present Illness - Chief Complaint Chief Complaint: hyperkalemia, jerica, History of Present Illness: Acute Kidney Injury with hyperkalemia (acute, high risk) Suspect pre-renal injury in the setting of underlying CKD Plan is for gentle IV hydration at 50 to 75 cc an hour. Holding home torsemide 100 mg qday. Holding home potassium supplement 20 mEq daily. Holding home metformin 500 mg qd. Holding home Entresto 24/26 mg BID. A repeat basic metabolic panel noted improvement in potassium from 6.7 to 5.9 and mild improvement in creatinine to 2.9 from 3.2 A nephrology consult will be obtained in the morning. Received IV insulin, glucose, and calcium in the ER Heart failure - unclear if HFrEF or HFpEF (chronic, stable) She is euvolemic/hypovolemic on exam. Her baseline is NYHA class III symptoms. Continue home carvedilol 25 mg BID. The diuretic and potassium supplement are being held. The Entresto is being held. Umbilical hernia (acute, stable) She does not endorse any abdominal pain. The surgery team has been consulted for assistance. Diabetes mellitus (chronic, stable) Her home metformin 500 mg qd is being held. Hyperlipidemia (chronic, stable) Continue home atorvastatin 80 mg qhs. Hypothyroidism (chronic, stable) Continue home levothyroxine. Subjective This is a follow-up for a woman who presents with a two-week history of poor appetite. She was recently started on torsemide 100 mg qday for gross hypervolemia, which resulted in a 30-liter volume loss. She was also taking a daily potassium supplement. She has been able to tolerate oral intake, although this has been reduced due to her lack of appetite. Home cardiac medications torsemide 100 mg qday potassium supplement 20 mEq daily carvedilol 25 mg BID Entresto 24/26 mg BID atorvastatin 80 mg qhs Physical examination Vital Signs Blood pressure: 148/64 mmHg Heart rate: 91 beats per minute Respiratory rate: 18 breaths per minute Oxygen saturation: 96% on room air Height: 4'10" Weight: 160.9 lbs BMI: 33.6 Neurological Alert and oriented to person, place, and time. Pupils are normal. Thought content is normal. Cardiovascular Non-tachycardic. Respiratory No tachypnea. Pulmonary edema and effusions noted on CT chest. Abdominal Non-distended. An umbilical hernia was noted on examination. Musculoskeletal No gross deformities. Lab and Studies Reviewed Complete blood count (09/21/2025): Hemoglobin 10.1, Hematocrit 35, Platelets 295. Independently reviewed and interpreted by me. --- Basic metabolic panel (09/21/2025): Sodium 134, Potassium 6.7, BUN 40, Creatinine 3.2, Glucose 180. Independently reviewed and interpreted by me. --- Basic metabolic panel (09/22/2025): Sodium 134, Potassium 5.9, BUN 39, Creatinine 2.94. Independently reviewed and interpreted by me. --- CT chest: Noted pulmonary edema and effusions. Independently reviewed and interpreted by me. Notes reviewed Emergency room documentation from 09/22/2025 was reviewed. She was noted to have no EKG changes associated with her hyperkalemia. Initial treatment included glucose, saline, and nebulizer treatment. MDM Summary 1. Number and Complexity of Problems Addressed (CoPA): High Complexity: The patient presents with acute kidney injury, which is a chronic illness with severe exacerbation. This condition poses a threat to bodily function, particularly given the associated significant hyperkalemia. The management involves addressing multiple morbidities including heart failure and diabetes. 2. Amount and/or Complexity of Data to be Reviewed and Analyzed (Data): Extensive: Data review included ordering and interpreting multiple complex lab tests (two basic metabolic panels, one complete blood count), reviewing advanced imaging (CT chest), and reviewing external records (emergency room documentation). 3. Risk of Complications, Morbidity, and/or Mortality (Risk): High Risk: The management involves IV fluids with additives (saline) and decisions regarding potential hospitalization or escalation of care for acute kidney injury and hyperkalemia. The patient is also on multiple medications that carry inherent risks, and adjustments are being made in a high-risk clinical scenario. - Review of Systems Constitutional: No Symptoms Eyes: No Symptoms Respiratory: No Symptoms Cardiac: No Symptoms Genitourinary Symptoms: No Symptoms Skin: No Symptoms Psychological: No Symptoms Endocrine: No Symptoms Hematologic/Lymphatic: No Symptoms Immunological/Allergic: No Symptoms Medications & Allergies Home Medications: Home Medication List Omeprazole 20 MG [Prilosec 20 mg] 40 mg PO DAILY 05/11/13 [History Confirmed 09/21/25] Atorvastatin Calcium 80 mg PO QHS 11/29/16 [History Confirmed 09/21/25] Metformin HCl 500 mg PO .1200,2200 11/29/16 [History Confirmed 09/21/25] PARoxetine HCL [Paroxetine HCl] 10 mg PO DAILY 11/29/16 [History Confirmed 09/21/25] Cyanocobalamin (Vitamin B-12) [B-12] 1,000 mcg PO HS 08/31/17 [History Confirmed 09/21/25] Ubidecarenone/Vit E Acet [Co Q-10 100 mg Softgel] 1 cap PO 1200 08/31/17 [History Confirmed 09/21/25] carvediloL [Coreg] 25 mg PO BID 08/31/17 [History Confirmed 09/21/25] Apixaban [Eliquis] 5 mg PO BID 10/09/17 [History Confirmed 09/21/25] Sacubitril/Valsartan [Entresto 24 mg-26 mg Tablet] 1 tab PO BID 02/20/25 [History Confirmed 09/21/25] Albuterol Sulfate [Albuterol Sulfate Hfa] 2 puffs IH Q6H PRN PRN 07/07/25 [History Confirmed 09/21/25] Epoetin Jeremías [Procrit] 40,000 units SQ Q14D 07/07/25 [History Confirmed 09/21/25] Ascorbic Acid [Vitamin C] 1,000 mg PO DAILY 09/21/25 [History Confirmed 09/21/25] Folic Acid 0.4 mg PO DAILY 09/21/25 [History Confirmed 09/21/25] Magnesium Oxide 400 mg PO DAILY 09/21/25 [History Confirmed 09/21/25] Potassium Chloride 20 meq PO BID 09/21/25 [History Confirmed 09/21/25] Thyroid,Pork [[place] Thyroid] 90 mg PO DAILY 09/21/25 [History Confirmed 09/21/25] Torsemide 100 mg PO DAILY 09/21/25 [History Confirmed 09/21/25] Allergies/Adverse Reactions: Allergies Allergy/AdvReac Type Severity Reaction Status Date / Time hydrocodone [Hydrocodone] Allergy Intermediate Rash Verified 07/07/25 12:04 tuberculin,PPD,multi-puncture Allergy Intermediate Swelling Verified 06/18/25 09:11 - Past Medical History Past Medical History: Yes Neurological History: No Pertinent History ENT History: No Pertinent History Cardiac History: Hypertension Respiratory History: CHF Endocrine Medical History: Diabetes Type II, Hypothyroidism Musculoskelatal History: No Pertinent History GI Medical History: GERD History: Renal Disease Pyscho-Social History: Panic Disorder Reproductive Disorders: No Pertinent History Comment: PMH: DM II, HTN, CHF - Past Surgical History Past Surgical History: Yes Neuro Surgical History: No Pertinent History Cardiac History: Cardiac Catheterization, Cardiac Stent, Pacemaker Respiratory Surgery: No Pertinent History GI Surgical History: Appendectomy Genitourinary Surgical Hx: No Pertinent History Musculskeletal Surgical Hx: Joint Replacement Female Surgical History: Tubal Ligation, Other Other Surgical History: bilateral knee replacement, uterine suspension Significant Family History: heart disease, hypertension - Social History Smoking Status: Never smoker How long have you smoked: no Exposure to second hand smoke: No Alcohol: None Drug Use: none - Social Determinants of Health Will the patient participate in the screening: Yes Do you worry about a steady place to live?: No Do you have any problems with any of the following?: No known problems In the past 12 months,have you had to go without utilities?: No Have you or anyone in your house had to go without enough: No Transportation Issues: No Has anyone in your support network made you feel unsafe?: No Does the patient want assistance with any of the above?: No - Physical Exam Vital Signs: Vital Signs - 24 hr Temp Pulse Resp BP BP Pulse Ox 09/22/25 02:32 88 16 98 09/22/25 02:11 97 F 89 18 156/65 98 09/22/25 01:49 95 09/22/25 01:00 88 29 H 129/63 95 09/22/25 00:30 91 H 19 148/64 96 09/22/25 00:20 84 16 95 09/22/25 00:06 86 19 149/50 98 09/21/25 23:30 84 21 138/55 95 09/21/25 22:55 80 23 169/58 95 09/21/25 22:51 83 24 97 09/21/25 22:50 96 09/21/25 22:48 94 L 09/21/25 22:46 97.0 F 83 18 169/58 96 Results - Labs Lab/Micro Results: Lab Results-Last 24 Hours 09/21/25 09/21/25 09/21/25 Range/Units 23:01 23:07 23:07 WBC 7.6 (3.98-10.04) x10^3/uL RBC 3.55 L (3.93-5.22) x10^6/uL Hgb 10.1 L (11.2-15.7) g/dL Hct 35.1 (34.1-44.9) % MCV 98.9 H (79.4-94.8) fL MCH 28.5 (25.6-32.2) pg MCHC 28.8 L (32.2-35.5) g/dL RDW 19.8 H (11.7-14.4) % Plt Count 295 (182-369) x10^3/uL MPV 10.3 (9.4-12.3) fL Gran % 72.8 H (34.0-71.1) % Immature Gran % (Auto) 0.3 (0.001-0.429) % Nucleat RBC Rel Count 0.0 (0.00-0.2) % Eos # (Auto) 0.10 (0.04-0.36) x10^3/uL Immature Gran # (Auto) 0.02 (0.001-0.031) x10^3u/L Absolute Lymphs (auto) 1.24 (1.18-3.74) x10^3/uL Absolute Monos (auto) 0.66 (0.24-0.86) x10^3/uL Absolute Nucleated RBC 0.00 (0.00-0.012) x10^3u/L Lymphocytes % 16.4 L (19.3-51.7) % Monocytes % 8.7 (4.7-12.5) % Eosinophils % 1.3 (0.7-5.8) % Basophils % 0.5 (0.1-1.2) % Absolute Granulocytes 5.49 (1.56-6.13) x10^3/uL Basophils # 0.04 (0.01-0.08) x10^3/uL Sodium 134 L (135-145) mmol/L Potassium 6.9 H* (3.5-5.1) mmol/L Chloride 101 (98-107) mmol/L Carbon Dioxide 25 (22-30) mmol/L Anion Gap 15.2 H (5-15) MEQ/L BUN 43 H (7-17) mg/dL Creatinine 2.95 H (0.52-1.04) mg/dL Estimated GFR 15.4 ML/MIN Glucose 192 H (74-106) mg/dL Lactic Acid 1.4 (0.4-2.0) Calcium 8.7 (8.4-10.2) mg/dL Total Bilirubin 1.10 (0.2-1.3) mg/dL AST 19 (14-36) U/L ALT 10 (0-35) U/L Alkaline Phosphatase 133 H (38-126) U/L Troponin I (0.000-0.033) ng/mL NT-Pro-B Natriuret Pep (<300) pg/mL Serum Total Protein 6.8 (6.3-8.2) g/dL Albumin 3.8 (3.5-5.0) g/dL Lipase 165 (23-300) U/L Influenza Type A Ag (NEGATIVE) Influenza Type B Ag (NEGATIVE) RSV (PCR) (NEGATIVE) SARS-CoV-2 (PCR) (NEGATIVE) Slides for Path Review YES 09/21/25 09/21/25 09/21/25 Range/Units 23:07 23:07 23:52 WBC (3.98-10.04) x10^3/uL RBC (3.93-5.22) x10^6/uL Hgb (11.2-15.7) g/dL Hct (34.1-44.9) % MCV (79.4-94.8) fL MCH (25.6-32.2) pg MCHC (32.2-35.5) g/dL RDW (11.7-14.4) % Plt Count (182-369) x10^3/uL MPV (9.4-12.3) fL Gran % (34.0-71.1) % Immature Gran % (Auto) (0.001-0.429) % Nucleat RBC Rel Count (0.00-0.2) % Eos # (Auto) (0.04-0.36) x10^3/uL Immature Gran # (Auto) (0.001-0.031) x10^3u/L Absolute Lymphs (auto) (1.18-3.74) x10^3/uL Absolute Monos (auto) (0.24-0.86) x10^3/uL Absolute Nucleated RBC (0.00-0.012) x10^3u/L Lymphocytes % (19.3-51.7) % Monocytes % (4.7-12.5) % Eosinophils % (0.7-5.8) % Basophils % (0.1-1.2) % Absolute Granulocytes (1.56-6.13) x10^3/uL Basophils # (0.01-0.08) x10^3/uL Sodium 134 L (135-145) mmol/L Potassium 6.7 H* (3.5-5.1) mmol/L Chloride 101 (98-107) mmol/L Carbon Dioxide 26 (22-30) mmol/L Anion Gap 13.7 (5-15) MEQ/L BUN 40 H (7-17) mg/dL Creatinine 3.20 H (0.52-1.04) mg/dL Estimated GFR 13.9 ML/MIN Glucose 180 H (74-106) mg/dL Lactic Acid (0.4-2.0) Calcium 8.5 (8.4-10.2) mg/dL Total Bilirubin (0.2-1.3) mg/dL AST (14-36) U/L ALT (0-35) U/L Alkaline Phosphatase (38-126) U/L Troponin I < 0.012 (0.000-0.033) ng/mL NT-Pro-B Natriuret Pep (<300) pg/mL Serum Total Protein (6.3-8.2) g/dL Albumin (3.5-5.0) g/dL Lipase (23-300) U/L Influenza Type A Ag NEGATIVE (NEGATIVE) Influenza Type B Ag NEGATIVE (NEGATIVE) RSV (PCR) NEGATIVE (NEGATIVE) SARS-CoV-2 (PCR) NEGATIVE (NEGATIVE) Slides for Path Review 11/09/0609/22/25 09/22/25 Range/Units 01:32 01:32 04:22 WBC (3.98-10.04) x10^3/uL RBC (3.93-5.22) x10^6/uL Hgb (11.2-15.7) g/dL Hct (34.1-44.9) % MCV (79.4-94.8) fL MCH (25.6-32.2) pg MCHC (32.2-35.5) g/dL RDW (11.7-14.4) % Plt Count (182-369) x10^3/uL MPV (9.4-12.3) fL Gran % (34.0-71.1) % Immature Gran % (Auto) (0.001-0.429) % Nucleat RBC Rel Count (0.00-0.2) % Eos # (Auto) (0.04-0.36) x10^3/uL Immature Gran # (Auto) (0.001-0.031) x10^3u/L Absolute Lymphs (auto) (1.18-3.74) x10^3/uL Absolute Monos (auto) (0.24-0.86) x10^3/uL Absolute Nucleated RBC (0.00-0.012) x10^3u/L Lymphocytes % (19.3-51.7) % Monocytes % (4.7-12.5) % Eosinophils % (0.7-5.8) % Basophils % (0.1-1.2) % Absolute Granulocytes (1.56-6.13) x10^3/uL Basophils # (0.01-0.08) x10^3/uL Sodium 134 L (135-145) mmol/L Potassium 5.8 H (3.5-5.1) mmol/L Chloride 103 (98-107) mmol/L Carbon Dioxide 26 (22-30) mmol/L Anion Gap 12.1 (5-15) MEQ/L BUN 39 H (7-17) mg/dL Creatinine 2.97 H (0.52-1.04) mg/dL Estimated GFR 15.2 ML/MIN Glucose 189 H (74-106) mg/dL Lactic Acid (0.4-2.0) Calcium 8.5 (8.4-10.2) mg/dL Total Bilirubin (0.2-1.3) mg/dL AST (14-36) U/L ALT (0-35) U/L Alkaline Phosphatase (38-126) U/L Troponin I < 0.012 0.015 (0.000-0.033) ng/mL NT-Pro-B Natriuret Pep 27370 (<300) pg/mL Serum Total Protein (6.3-8.2) g/dL Albumin (3.5-5.0) g/dL Lipase (23-300) U/L Influenza Type A Ag (NEGATIVE) Influenza Type B Ag (NEGATIVE) RSV (PCR) (NEGATIVE) SARS-CoV-2 (PCR) (NEGATIVE) Slides for Path Review 09/22/25 Range/Units 04:22 WBC (3.98-10.04) x10^3/uL RBC (3.93-5.22) x10^6/uL Hgb (11.2-15.7) g/dL Hct (34.1-44.9) % MCV (79.4-94.8) fL MCH (25.6-32.2) pg MCHC (32.2-35.5) g/dL RDW (11.7-14.4) % Plt Count (182-369) x10^3/uL MPV (9.4-12.3) fL Gran % (34.0-71.1) % Immature Gran % (Auto) (0.001-0.429) % Nucleat RBC Rel Count (0.00-0.2) % Eos # (Auto) (0.04-0.36) x10^3/uL Immature Gran # (Auto) (0.001-0.031) x10^3u/L Absolute Lymphs (auto) (1.18-3.74) x10^3/uL Absolute Monos (auto) (0.24-0.86) x10^3/uL Absolute Nucleated RBC (0.00-0.012) x10^3u/L Lymphocytes % (19.3-51.7) % Monocytes % (4.7-12.5) % Eosinophils % (0.7-5.8) % Basophils % (0.1-1.2) % Absolute Granulocytes (1.56-6.13) x10^3/uL Basophils # (0.01-0.08) x10^3/uL Sodium 134 L (135-145) mmol/L Potassium 5.9 H (3.5-5.1) mmol/L Chloride 102 (98-107) mmol/L Carbon Dioxide 27 (22-30) mmol/L Anion Gap 11.1 (5-15) MEQ/L BUN 39 H (7-17) mg/dL Creatinine 2.94 H (0.52-1.04) mg/dL Estimated GFR 15.4 ML/MIN Glucose 127 H (74-106) mg/dL Lactic Acid (0.4-2.0) Calcium 8.5 (8.4-10.2) mg/dL Total Bilirubin (0.2-1.3) mg/dL AST (14-36) U/L ALT (0-35) U/L Alkaline Phosphatase (38-126) U/L Troponin I (0.000-0.033) ng/mL NT-Pro-B Natriuret Pep (<300) pg/mL Serum Total Protein (6.3-8.2) g/dL Albumin (3.5-5.0) g/dL Lipase (23-300) U/L Influenza Type A Ag (NEGATIVE) Influenza Type B Ag (NEGATIVE) RSV (PCR) (NEGATIVE) SARS-CoV-2 (PCR) (NEGATIVE) Slides for Path Review - Radiology Impressions Radiology Exams & Impressions: Radiology Procedures Category Date Time Status ABDOMEN AND PELVIS W/0 CONTRAS [CT] Stat Exams 09/21/25 23:43 Completed CHEST WITHOUT CONTRAST [CT] Stat Exams 09/21/25 23:42 Completed - Other Procedures and Tests Respiratory Therapy 09/22/25 00:28 Respiratory Therapy Assessment Q24H Telemedicine Encounter - Telemedicine Encounter Telemedicine Encounter: "The entirety of this encounter was performed via Telemedicine" This visit was performed using real-time audio and video connection between my location and thepatients locationwith the assistance of a surrogateat the patients location. Written or verbal consent was obtained from the patient/guardian to perform this visit [email or web address]. Any patient questions regarding the telemedicine interaction were answered.
[2025-09-22 07:25] VITALS: BP 177/78
[2025-09-22] MEDS ORDERED: MEDICATION INTERVENTION MC SCH ×2 (07:45→08:30)
[2025-09-22] MEDS ORDERED: PHARMACY RENAL DOSING MC ONE (08:11)
[2025-09-22 08:15] LABS: BASOPHIL % 0.6 % (0.1-1.2); Basophil (Absolute #) 0.03 x10^3/uL (0.01-0.08); Eosinophil (Absolute #) 0.02 x10^3/uL (0.04-0.36); Hematocrit 30.8 % (34.1-44.9); Hemoglobin 8.9 g/dL (11.2-15.7); IMMATURE GRAN # 0.01 x10^3u/L (0.001-0.031); IMMATURE GRAN % 0.2 % (0.001-0.429); Lymphocyte (Absolute #) 0.96 x10^3/uL (1.18-3.74); Mean Corpuscular Hemoglobin 28.6 pg (25.6-32.2); Mean Corpuscular Hgb Concent. 28.9 g/dL (32.2-35.5); Monocyte (Absolute #) 0.41 x10^3/uL (0.24-0.86); NUCLEATED RBC # 0.00 x10^3u/L (0.00-0.012); NUCLEATED RBC % 0.0 % (0.00-0.2); Platelet Count 268 x10^3/uL (182-369); Red Blood Count 3.11 x10^6/uL (3.93-5.22); White Blood Count 5.4 x10^3/uL (3.98-10.04)
[2025-09-22] MEDS ORDERED: HUMALOG SQ PRN (08:15)
[2025-09-22] MEDS: ELIQUIS 2.5 MG TABLET PO SCH (08:43)
[2025-09-22] MEDS: VELTASSA PO STA (08:59)
[2025-09-22] MEDS: Vitamin C 500 MG PO SCH (09:02)
[2025-09-22] MEDS: FOLATE 1 MG PO SCH (09:03)
[2025-09-22] MEDS: Protonix 40MG Tablet PO SCH (09:03)
[2025-09-22] MEDS: Paxil 20 MG PO SCH (09:03)
[2025-09-22] MEDS: COREG 12.5 MG PO SCH (09:05)
[2025-09-22 09:53] LABS: Slide Review 1 YES
[2025-09-22] MEDS ORDERED: NON-FORMULARY ITEM (Paroxetine Hcl [Paroxetine Hcl] 10 MG Tablet) PO SCH (10:00)
[2025-09-22] MEDS ORDERED: NON-FORMULARY ITEM (Ascorbic Acid [Vitamin C] 1,000 MG Tablet) PO SCH (10:00)
[2025-09-22] MEDS ORDERED: NON-FORMULARY ITEM (Folic Acid [Folic Acid] 0.4 MG Tablet) PO SCH (10:00)
[2025-09-22] MEDS ORDERED: NON-FORMULARY ITEM (Apixaban [Eliquis] 5 MG Tablet) PO SCH (10:00)
[2025-09-22] MEDS ORDERED: NON-FORMULARY ITEM (Carvedilol [Coreg] 25 MG Tablet) PO SCH (10:00)
[2025-09-22] MEDS ORDERED: ELIQUIS 2.5 MG TABLET PO SCH (10:00)
[2025-09-22] MEDS ORDERED: NON-FORMULARY ITEM (Omeprazole 20 Mg [Prilosec 20 Mg] 20 MG Capsule.Dr) PO SCH (10:00)
--- NOTE | 2025-09-22 10:12 | PCM.DS ---
Discharge Summary Date of Admission: 09/22/25 02:12 Date of Discharge: 09/22/25 Admitting Physician: SUAD CUEVAS MD Primary Care Provider: JUAN FONSECA MD Allergies Allergies hydrocodone [Hydrocodone] Allergy (Intermediate, Verified 07/07/25 12:04) Rash tuberculin,PPD,multi-puncture Allergy (Intermediate, Verified 06/18/25 09:11) Swelling Hospital Summary - Hospital Course Hospital Course: Ms. Calero is an 84-year-old female presented to the ED on 09/21/25 with acute nausea, vomiting, and profuse diarrhea beginning one hour prior to arrival, accompanied by inability to leave the toilet due to weakness and abdominal pain radiating to the left chest. She reported progressive abdominal discomfort localized around a known umbilical hernia, rated 7/10, along with dry heaves. She had recently undergone a diuretic escalation from furosemide 40 mg daily to torsemide 100 mg twice daily, and noted 30 lb unintentional weight loss over three weeks. On presentation, she was hypertensive but otherwise hemodynamically stable. Initial labs showed macrocytic anemia (Hgb 8.9 ), hyponatremia (Na 134 ), and hyperkalemia (K 6.7 -5.9) after treatment. She demonstrated acute kidney injury on CKD, with creatinine 3.20 -2.94 mg/dL (baseline 1.4 mg/dL). BNP was markedly elevated at 10,900 pg/mL, consistent with volume overload and decompensated chronic heart failure. EKG revealed AV-paced rhythm at 82 bpm, prolonged MS 215 ms, QRS 182 ms, QTc [address] abdomen/pelvis revealed mild right pleural effusion, small uncomplicated sigmoid diverticula, and a small umbilical hernia containing bowel with mild adjacent fat stranding, raising concern for early strangulation/incarceration. CT chest further demonstrated mild right and minimal left pleural effusion, interlobular and subpleural septal thickening, and cardiomegaly, all consistent with pulmonary congestion/edema. Few renal cortical cysts and splenic granulomas were incidentally noted. Given the constellation of VEENA with hyperkalemia, acute on chronic heart failure, and possible early incarcerated hernia requiring surgical evaluation, the case was discussed with Dr. Vidal, who recommended transfer to a higher level of care for nephrology, cardiology, and surgical intervention. The patient was accepted for transfer for continued management and operative capability as needed. Patient is on Eliquis although she is unsure why- (currently on hold for surgery). I spent 35 minutes [id number] with the patient on the day of discharge performing discharge exam, discussing hospital stay and discharge instructions with patient and caregivers, preparation of discharge records, prescriptions & referral forms and addressing any questions/concerns the patient had as documented above. - Vitals & Intake/Output Vital Signs: Vital Signs Temperature 97.6 F 09/22/25 07:24 Pulse Rate 91 H 09/22/25 07:24 Respiratory Rate 18 09/22/25 08:17 Blood Pressure 177/78 09/22/25 07:24 O2 Sat by Pulse Oximetry 94 L 09/22/25 07:24 Intake & Output: Intake & Output 09/19/25 09/20/25 09/21/25 09/22/25 11:59 11:59 11:59 11:59 Intake Total 80 Output Total 600 Balance -520 Weight 73 kg - Lab Result Diagrams: 09/22/25 04:22 09/22/25 04:22 Lab Results-Last 24 Hrs: Lab Results-Last 24 Hours 09/21/25 09/21/25 09/21/25 Range/Units 23:01 23:07 23:07 WBC 7.6 (3.98-10.04) x10^3/uL RBC 3.55 L (3.93-5.22) x10^6/uL Hgb 10.1 L (11.2-15.7) g/dL Hct 35.1 (34.1-44.9) % MCV 98.9 H (79.4-94.8) fL MCH 28.5 (25.6-32.2) pg MCHC 28.8 L (32.2-35.5) g/dL RDW 19.8 H (11.7-14.4) % Plt Count 295 (182-369) x10^3/uL MPV 10.3 (9.4-12.3) fL Gran % 72.8 H (34.0-71.1) % Immature Gran % (Auto) 0.3 (0.001-0.429) % Nucleat RBC Rel Count 0.0 (0.00-0.2) % Eos # (Auto) 0.10 (0.04-0.36) x10^3/uL Immature Gran # (Auto) 0.02 (0.001-0.031) x10^3u/L Absolute Lymphs (auto) 1.24 (1.18-3.74) x10^3/uL Absolute Monos (auto) 0.66 (0.24-0.86) x10^3/uL Absolute Nucleated RBC 0.00 (0.00-0.012) x10^3u/L Lymphocytes % 16.4 L (19.3-51.7) % Monocytes % 8.7 (4.7-12.5) % Eosinophils % 1.3 (0.7-5.8) % Basophils % 0.5 (0.1-1.2) % Absolute Granulocytes 5.49 (1.56-6.13) x10^3/uL Basophils # 0.04 (0.01-0.08) x10^3/uL Sodium 134 L (135-145) mmol/L Potassium 6.9 H* (3.5-5.1) mmol/L Chloride 101 (98-107) mmol/L Carbon Dioxide 25 (22-30) mmol/L Anion Gap 15.2 H (5-15) MEQ/L BUN 43 H (7-17) mg/dL Creatinine 2.95 H (0.52-1.04) mg/dL Estimated GFR 15.4 ML/MIN Glucose 192 H (74-106) mg/dL POC Glucometer (74 to 106) mg/dL Hemoglobin A1c (4.5-6.0) % Lactic Acid 1.4 (0.4-2.0) Calcium 8.7 (8.4-10.2) mg/dL Total Bilirubin 1.10 (0.2-1.3) mg/dL AST 19 (14-36) U/L ALT 10 (0-35) U/L Alkaline Phosphatase 133 H (38-126) U/L Troponin I (0.000-0.033) ng/mL NT-Pro-B Natriuret Pep (<300) pg/mL Serum Total Protein 6.8 (6.3-8.2) g/dL Albumin 3.8 (3.5-5.0) g/dL Lipase 165 (23-300) U/L Influenza Type A Ag (NEGATIVE) Influenza Type B Ag (NEGATIVE) RSV (PCR) (NEGATIVE) SARS-CoV-2 (PCR) (NEGATIVE) Slides for Path Review YES 09/21/25 09/21/25 09/21/25 Range/Units 23:07 23:07 23:52 WBC (3.98-10.04) x10^3/uL RBC (3.93-5.22) x10^6/uL Hgb (11.2-15.7) g/dL Hct (34.1-44.9) % MCV (79.4-94.8) fL MCH (25.6-32.2) pg MCHC (32.2-35.5) g/dL RDW (11.7-14.4) % Plt Count (182-369) x10^3/uL MPV (9.4-12.3) fL Gran % (34.0-71.1) % Immature Gran % (Auto) (0.001-0.429) % Nucleat RBC Rel Count (0.00-0.2) % Eos # (Auto) (0.04-0.36) x10^3/uL Immature Gran # (Auto) (0.001-0.031) x10^3u/L Absolute Lymphs (auto) (1.18-3.74) x10^3/uL Absolute Monos (auto) (0.24-0.86) x10^3/uL Absolute Nucleated RBC (0.00-0.012) x10^3u/L Lymphocytes % (19.3-51.7) % Monocytes % (4.7-12.5) % Eosinophils % (0.7-5.8) % Basophils % (0.1-1.2) % Absolute Granulocytes (1.56-6.13) x10^3/uL Basophils # (0.01-0.08) x10^3/uL Sodium 134 L (135-145) mmol/L Potassium 6.7 H* (3.5-5.1) mmol/L Chloride 101 (98-107) mmol/L Carbon Dioxide 26 (22-30) mmol/L Anion Gap 13.7 (5-15) MEQ/L BUN 40 H (7-17) mg/dL Creatinine 3.20 H (0.52-1.04) mg/dL Estimated GFR 13.9 ML/MIN Glucose 180 H (74-106) mg/dL POC Glucometer (74 to 106) mg/dL Hemoglobin A1c (4.5-6.0) % Lactic Acid (0.4-2.0) Calcium 8.5 (8.4-10.2) mg/dL Total Bilirubin (0.2-1.3) mg/dL AST (14-36) U/L ALT (0-35) U/L Alkaline Phosphatase (38-126) U/L Troponin I < 0.012 (0.000-0.033) ng/mL NT-Pro-B Natriuret Pep (<300) pg/mL Serum Total Protein (6.3-8.2) g/dL Albumin (3.5-5.0) g/dL Lipase (23-300) U/L Influenza Type A Ag NEGATIVE (NEGATIVE) Influenza Type B Ag NEGATIVE (NEGATIVE) RSV (PCR) NEGATIVE (NEGATIVE) SARS-CoV-2 (PCR) NEGATIVE (NEGATIVE) Slides for Path Review 09/22/25 09/22/25 09/22/25 Range/Units 01:32 01:32 04:22 WBC (3.98-10.04) x10^3/uL RBC (3.93-5.22) x10^6/uL Hgb (11.2-15.7) g/dL Hct (34.1-44.9) % MCV (79.4-94.8) fL MCH (25.6-32.2) pg MCHC (32.2-35.5) g/dL RDW (11.7-14.4) % Plt Count (182-369) x10^3/uL MPV (9.4-12.3) fL Gran % (34.0-71.1) % Immature Gran % (Auto) (0.001-0.429) % Nucleat RBC Rel Count (0.00-0.2) % Eos # (Auto) (0.04-0.36) x10^3/uL Immature Gran # (Auto) (0.001-0.031) x10^3u/L Absolute Lymphs (auto) (1.18-3.74) x10^3/uL Absolute Monos (auto) (0.24-0.86) x10^3/uL Absolute Nucleated RBC (0.00-0.012) x10^3u/L Lymphocytes % (19.3-51.7) % Monocytes % (4.7-12.5) % Eosinophils % (0.7-5.8) % Basophils % (0.1-1.2) % Absolute Granulocytes (1.56-6.13) x10^3/uL Basophils # (0.01-0.08) x10^3/uL Sodium 134 L (135-145) mmol/L Potassium 5.8 H (3.5-5.1) mmol/L Chloride 103 (98-107) mmol/L Carbon Dioxide 26 (22-30) mmol/L Anion Gap 12.1 (5-15) MEQ/L BUN 39 H (7-17) mg/dL Creatinine 2.97 H (0.52-1.04) mg/dL Estimated GFR 15.2 ML/MIN Glucose 189 H (74-106) mg/dL POC Glucometer (74 to 106) mg/dL Hemoglobin A1c (4.5-6.0) % Lactic Acid (0.4-2.0) Calcium 8.5 (8.4-10.2) mg/dL Total Bilirubin (0.2-1.3) mg/dL AST (14-36) U/L ALT (0-35) U/L Alkaline Phosphatase (38-126) U/L Troponin I < 0.012 0.015 (0.000-0.033) ng/mL NT-Pro-B Natriuret Pep 43666 (<300) pg/mL Serum Total Protein (6.3-8.2) g/dL Albumin (3.5-5.0) g/dL Lipase (23-300) U/L Influenza Type A Ag (NEGATIVE) Influenza Type B Ag (NEGATIVE) RSV (PCR) (NEGATIVE) SARS-CoV-2 (PCR) (NEGATIVE) Slides for Path Review 09/22/25 09/22/25 09/22/25 Range/Units 04:22 04:22 04:35 WBC 5.4 (3.98-10.04) x10^3/uL RBC 3.11 L (3.93-5.22) x10^6/uL Hgb 8.9 L (11.2-15.7) g/dL Hct 30.8 L (34.1-44.9) % MCV 99.0 H (79.4-94.8) fL MCH 28.6 (25.6-32.2) pg MCHC 28.9 L (32.2-35.5) g/dL RDW 19.8 H (11.7-14.4) % Plt Count 268 (182-369) x10^3/uL MPV 10.3 (9.4-12.3) fL Gran % 73.3 H (34.0-71.1) % Immature Gran % (Auto) 0.2 (0.001-0.429) % Nucleat RBC Rel Count 0.0 (0.00-0.2) % Eos # (Auto) 0.02 L (0.04-0.36) x10^3/uL Immature Gran # (Auto) 0.01 (0.001-0.031) x10^3u/L Absolute Lymphs (auto) 0.96 L (1.18-3.74) x10^3/uL Absolute Monos (auto) 0.41 (0.24-0.86) x10^3/uL Absolute Nucleated RBC 0.00 (0.00-0.012) x10^3u/L Lymphocytes % 17.9 L (19.3-51.7) % Monocytes % 7.6 (4.7-12.5) % Eosinophils % 0.4 L (0.7-5.8) % Basophils % 0.6 (0.1-1.2) % Absolute Granulocytes 3.94 (1.56-6.13) x10^3/uL Basophils # 0.03 (0.01-0.08) x10^3/uL Sodium 134 L (135-145) mmol/L Potassium 5.9 H (3.5-5.1) mmol/L Chloride 102 (98-107) mmol/L Carbon Dioxide 27 (22-30) mmol/L Anion Gap 11.1 (5-15) MEQ/L BUN 39 H (7-17) mg/dL Creatinine 2.94 H (0.52-1.04) mg/dL Estimated GFR 15.4 ML/MIN Glucose 127 H (74-106) mg/dL POC Glucometer (74 to 106) mg/dL Hemoglobin A1c 4.95 (4.5-6.0) % Lactic Acid (0.4-2.0) Calcium 8.5 (8.4-10.2) mg/dL Total Bilirubin (0.2-1.3) mg/dL AST (14-36) U/L ALT (0-35) U/L Alkaline Phosphatase (38-126) U/L Troponin I (0.000-0.033) ng/mL NT-Pro-B Natriuret Pep (<300) pg/mL Serum Total Protein (6.3-8.2) g/dL Albumin (3.5-5.0) g/dL Lipase (23-300) U/L Influenza Type A Ag (NEGATIVE) Influenza Type B Ag (NEGATIVE) RSV (PCR) (NEGATIVE) SARS-CoV-2 (PCR) (NEGATIVE) Slides for Path Review YES 09/22/25 Range/Units 07:13 WBC (3.98-10.04) x10^3/uL RBC (3.93-5.22) x10^6/uL Hgb (11.2-15.7) g/dL Hct (34.1-44.9) % MCV (79.4-94.8) fL MCH (25.6-32.2) pg MCHC (32.2-35.5) g/dL RDW (11.7-14.4) % Plt Count (182-369) x10^3/uL MPV (9.4-12.3) fL Gran % (34.0-71.1) % Immature Gran % (Auto) (0.001-0.429) % Nucleat RBC Rel Count (0.00-0.2) % Eos # (Auto) (0.04-0.36) x10^3/uL Immature Gran # (Auto) (0.001-0.031) x10^3u/L Absolute Lymphs (auto) (1.18-3.74) x10^3/uL Absolute Monos (auto) (0.24-0.86) x10^3/uL Absolute Nucleated RBC (0.00-0.012) x10^3u/L Lymphocytes % (19.3-51.7) % Monocytes % (4.7-12.5) % Eosinophils % (0.7-5.8) % Basophils % (0.1-1.2) % Absolute Granulocytes (1.56-6.13) x10^3/uL Basophils # (0.01-0.08) x10^3/uL Sodium (135-145) mmol/L Potassium (3.5-5.1) mmol/L Chloride (98-107) mmol/L Carbon Dioxide (22-30) mmol/L Anion Gap (5-15) MEQ/L BUN (7-17) mg/dL Creatinine (0.52-1.04) mg/dL Estimated GFR ML/MIN Glucose (74-106) mg/dL POC Glucometer 125 H (74 to 106) mg/dL Hemoglobin A1c (4.5-6.0) % Lactic Acid (0.4-2.0) Calcium (8.4-10.2) mg/dL Total Bilirubin (0.2-1.3) mg/dL AST (14-36) U/L ALT (0-35) U/L Alkaline Phosphatase (38-126) U/L Troponin I (0.000-0.033) ng/mL NT-Pro-B Natriuret Pep (<300) pg/mL Serum Total Protein (6.3-8.2) g/dL Albumin (3.5-5.0) g/dL Lipase (23-300) U/L Influenza Type A Ag (NEGATIVE) Influenza Type B Ag (NEGATIVE) RSV (PCR) (NEGATIVE) SARS-CoV-2 (PCR) (NEGATIVE) Slides for Path Review Micro Results-Entire Visit: Accuchecks Date 09/22/25 - Radiology Exams Ordered Rad Exams-Entire Visit: Radiology Procedures Category Date Time Status ABDOMEN AND PELVIS W/0 CONTRAS [CT] Stat Exams 09/21/25 23:43 Completed CHEST WITHOUT CONTRAST [CT] Stat Exams 09/21/25 23:42 Completed - Procedures and Test Procedures and Tests throughout Hospitalization: Therapy Orders & Screens 09/22/25 00:28 Respiratory Therapy Assessment Q24H Comment: 09/22/25 02:10 Respiratory Therapy Consult ONCE Comment: Reason For Exam: Discharge Exam General Appearance: no apparent distress Neurologic Exam: alert, oriented x 3, cooperative Eye Exam: PERRL Ears, Nose, Throat Exam: normal ENT inspection Neck Exam: normal inspection Respiratory Exam: normal breath sounds, lungs clear Cardiovascular Exam: regular rate/rhythm, normal heart sounds Gastrointestinal/Abdomen Exam: soft, normal bowel sounds, hernia (umbilical) Pelvic Exam: deferred Rectal Exam: deferred Back Exam: normal inspection Extremity Exam: swelling (BLE +2 pitting) Skin Exam: normal color Final Diagnosis/Problem List - Final Discharge Diagnosis/Problem (1) Acute on chronic kidney failure Current Visit: Yes Status: Acute Assessment & Plan: Discontinue high-dose torsemide and nephrotoxic agents Baseline creat at 1.3- creat reviewed at 2.94- improving from admission at 3.20 Monitor BMP, urine output, electrolytes Avoid hypotension, IV contrast Anticipate nephrology evaluation on transfer Hold IVF with CHF exacerbation/pulmonary edema Code(s): N17.9 - ACUTE KIDNEY FAILURE, UNSPECIFIED; N18.9 - CHRONIC KIDNEY DISEASE, UNSPECIFIED (2) Hyperkalemia Current Visit: Yes Status: Acute Assessment & Plan: Treated with insulin/dextrose, veltassa prior to transfer with some improvement to 5.9 - calcium gluconate given in ED Maintain cardiac monitoring and serial potassium Nephrology to oversee further management, renal dosing of diuretics and medications Code(s): E87.5 - HYPERKALEMIA (3) CHF exacerbation Current Visit: Yes Status: Acute Assessment & Plan: BNP 10,900; imaging consistent with pulmonary edema No echo on file Hold aggressive diuretics pending renal evaluation Entresto held due to VEENA Cardiology consult at receiving facility Daily weights, strict I/Os, electrolyte monitoring Code(s): I50.9 - HEART FAILURE, UNSPECIFIED (4) Macrocytic anemia Current Visit: Yes Status: Acute Assessment & Plan: Hgb 8.9, chronic component suspected Evaluate B12/folate, TSH, reticulocyte count on receiving service Transfusion threshold if symptomatic or <7 g/dL Code(s): D53.9 - NUTRITIONAL ANEMIA, UNSPECIFIED (5) Hyponatremia Current Visit: Yes Status: Acute Assessment & Plan: mild Hold IVF for now Code(s): E87.1 - HYPO-OSMOLALITY AND HYPONATREMIA (6) DMII (diabetes mellitus, type 2) Current Visit: Yes Status: Acute Assessment & Plan: Patient NPO for surgical intervention Basal insulin with accuchecks q4h may need correctional insulin (7) HTN (hypertension) Current Visit: Yes Status: Acute Assessment & Plan: Continue home regimen Entresto held Code(s): I10 - ESSENTIAL (PRIMARY) HYPERTENSION (8) Panic disorder Current Visit: Yes Status: Acute Assessment & Plan: continue home meds Code(s): F41.0 - PANIC DISORDER [EPISODIC PAROXYSMAL ANXIETY] (9) Umbilical hernia Current Visit: Yes Status: Acute Assessment & Plan: CT concerning for herniated bowel with fat stranding NPO, maintain IV access Transfer for general surgery evaluation and potential operative repair Eliquis on hold for surgery Code(s): K42.9 - UMBILICAL HERNIA WITHOUT OBSTRUCTION OR GANGRENE (10) Hypothyroidism Current Visit: No Status: Chronic Assessment & Plan: continue home meds Code(s): E03.9 - HYPOTHYROIDISM, UNSPECIFIED (11) Obesity (BMI 30-39.9) Current Visit: No Status: Chronic Assessment & Plan: advised diet and exercise when able Disposition Transferred to higher-level facility for nephrology, cardiology, and surgical management under Dr. Larios recommendation due to VEENA with hyperkalemia, cardiac dysfunction, and concern for incarcerated umbilical hernia requiring operative capability Code(s): E66.9 - OBESITY, UNSPECIFIED - Discharge Discharge Date: 09/22/25 Disposition: Home, Self-Care Condition: Stable Prescriptions: Continue Omeprazole 20 MG [Prilosec 20 mg] 40 mg PO DAILY Atorvastatin Calcium 80 mg PO QHS PARoxetine HCL [Paroxetine HCl] 10 mg PO DAILY Cyanocobalamin (Vitamin B-12) [B-12] 1,000 mcg PO HS Ubidecarenone/Vit E Acet [Co Q-10 100 mg Softgel] 1 cap PO 1200 carvediloL [Coreg] 25 mg PO BID Albuterol Sulfate [Albuterol Sulfate Hfa] 2 puffs IH Q6H PRN PRN PRN Reason: sob wheezing Epoetin Jeremías [Procrit] 40,000 units SQ Q14D Thyroid,Pork [[place] Thyroid] 90 mg PO DAILY Magnesium Oxide 400 mg PO DAILY Folic Acid 0.4 mg PO DAILY Ascorbic Acid [Vitamin C] 1,000 mg PO DAILY Discontinued Metformin HCl 500 mg PO .1200,2200 Apixaban [Eliquis] 5 mg PO BID Sacubitril/Valsartan [Entresto 24 mg-26 mg Tablet] 1 tab PO BID Torsemide 100 mg PO DAILY Potassium Chloride 20 meq PO BID Follow up with: JUAN FONSECA MD [Primary Care Provider, FAMILY PRACTICE] YAN CACERES [Family Provider, CARDIOLOGY]
[2025-09-22 11:25] VITALS: PULSE 86; RESP 16; TEMP 98; O2SAT 96
[2025-09-22] MEDS ORDERED: NON-FORMULARY ITEM (Ubidecarenone/Vit E Acet [Co Q-10 100 Mg Softgel] 1 EACH Capsule) PO SCH (12:00)
[2025-09-22 14:43] LABS: ISTAT NA 136 mmol/L (138-146)
[2025-09-22 14:44] LABS: ISTAT BUN 41 mg/dL (8-26); ISTAT CL 103 mmol/L (98-109); ISTAT CO2 25 mmol/L (24-29); ISTAT CREA 3.1 mg/dL (0.6-1.3); ISTAT GLUC 131 mg/dL (70-105); ISTAT K 5.7 mmol/L (3.5-4.9); ISTAT iCA 1.13 mmol/L (1.12-1.32)
[2025-09-22 15:20] LABS: Calcium 8.6 mg/dL (8.4-10.2); Carbon Dioxide 27 mmol/L (22-30); Creatinine 1 2.87 mg/dL (0.52-1.04); EST GLOMERULAR FILTRATION RATE 15.9 ML/MIN; Glucose 127 mg/dL (74-106); SGOT/AST 18 U/L (14-36); SGPT/ALT 9 U/L (0-35); Total Protein 6.2 g/dL (6.3-8.2)
[2025-09-22 15:35] LABS: Potassium 5.7 mmol/L (3.5-5.1)
[2025-09-22] MEDS ORDERED: NON-FORMULARY ITEM (Atorvastatin Calcium [Atorvastatin Calcium] 80 MG Tablet) PO SCH (22:00)
[2025-09-22] MEDS ORDERED: Vitamin B-12 500 MCG PO SCH (22:00)
[2025-09-22] MEDS ORDERED: NON-FORMULARY ITEM (Cyanocobalamin (Vitamin B-12) [B-12] 1,000 MCG Tablet) PO SCH (22:00)
[2025-09-22] MEDS ORDERED: ZOCOR 20MG PO SCH (22:00)
--- NOTE | 2025-09-23 11:23 | CONS ---
HISTORY OF PRESENT ILLNESS: An 84-year-old. I was called in the middle of the night from the ER. She is admitted for some nausea and some hyperkalemia. She has a history of hypothyroidism, some heart disease, hypertension, reflux, prior renal insufficiency, type 2 diabetes. She has had stents and pacemakers in the past, cardiac catheterization. She did a CT scan when she was here, shows a loop of bowel incarcerated in a ventral hernia. She has had a ventral hernia for a while. PAST MEDICAL HISTORY: Movement problem of bowels, hypertension. HOME MEDICATIONS: Omeprazole, atorvastatin, metformin, paroxetine, vitamin B12, CoQ10, carvedilol, Eliquis. For some reason, there is a surgical consult and they still gave her the Eliquis this morning. She is on Entresto, albuterol sulfate for her COPD. She has had some Procrit, vitamin C, folic acid, magnesium hydroxide, potassium chloride, along with thyroid, torsemide. PAST SURGICAL HISTORY: She has had cataract surgery. She had a tubal in the past. She had uterine suspension. She has had a cardiac catheterization. She had a pacemaker in the past. She has had appendectomy in the past, knee replacements in the past. ALLERGIES: Hydrocodone, tuberculin PPD function . PHYSICAL EXAMINATION: GENERAL: Slightly uncomfortable, otherwise in no acute distress. VITAL SIGNS: She is afebrile. Temperature 97, pulse 88, blood pressure 129/63 vitals printed out. HEENT: Sclerae nonicteric. NECK: No JVD. CHEST: Equal excursion, nonlabored breathing. CARDIOVASCULAR: Regular rate and rhythm. ABDOMEN: Soft, , there is incarcerated ventral hernia with loop of bowel in it. Mild tenderness. EXTREMITIES: No cyanosis. NEUROLOGIC: Alert. PSYCHIATRIC: Appropriate mood and affect. IMPRESSION: Incarcerated ventral hernia. Given the bowel loop, feel she warrants incarcerated hernia repair, possible bowel resection if indicated. General risks of bleeding and infection. Hopefully, they can correct her potassium. It was elevated last night. Plan on surgical intervention later today. Will need anesthesia evaluation. General risk of bleeding and infection; risk of recurrent hernia; risk of hematoma and seroma formation; risk of ; possible need for bowel resection with reanastomosis; risk of anastomotic complications including fistula formation but not limited to; risk of ileus or obstruction; generalized aches and pains; risk of anesthesia, DVT, PE, pneumonia; risk . Consent obtained. Will proceed with incarcerated hernia repair later this afternoon when I get her potassium improved. She will likely get the correction factors. They gave her Eliquis.
[2025-09-23] MEDS ORDERED: Paxil 20 MG PO SCH (22:00)
== END 2025-09-22 15:39 | DRG 699 ==
LOC: ED 22:43 → UNDOADMOB 09-22 02:09 → MED SURG 09-22 02:09 → ED 09-22 02:12 → MED SURG 09-22 02:12
PROVIDERS: ADMIT Internal Medicine; ATTEND Internal Medicine
DX: E11.22 Type 2 diabetes mellitus with diabetic chronic kidney disease (principal); E87.1 Hypo-osmolality and hyponatremia; I12.9 Hypertensive chronic kidney disease with stage 1 through stage 4 chronic kidney disease, or unspecified chronic kidney disease; N18.9 Chronic kidney disease, unspecified; N17.9 Acute kidney failure, unspecified; I50.9 Heart failure, unspecified; E87.5 Hyperkalemia; D53.9 Nutritional anemia, unspecified; F41.0 Panic disorder [episodic paroxysmal anxiety]; K42.9 Umbilical hernia without obstruction or gangrene; E03.9 Hypothyroidism, unspecified; E66.9 Obesity, unspecified; Z79.899 Other long term (current) drug therapy; Z79.01 Long term (current) use of anticoagulants
CPT/HCPCS: 36415; 71250; 74176; 80047; 80048; 80053; 82947; 83036; 83605; 83690; 83880; 84484; 85025; 87637; 93005; 94640; 96360; 96374; 96375; 99291; Q3014